=== PATIENT | female | born 1995 | race Caucasian/White ===

== ENCOUNTER 2017-07-18 19:45 | Inpatient (IN) | payer BC ==
[~2017-07-18] VITALS: Ht 160 cm; Wt 57.6 kg
[~2017-07-18 19:45] MED LIST: ACET325T9 PO; IBUP-1027 PO; NAPR-695 PO; NORE1TAB23 PO
[2017-07-18] MEDS ORDERED: IV NORMAL SALINE 1000ML BAG 1,000 ML IV SCH (19:58)
[2017-07-18] MEDS ORDERED: fentaNYL PF VIAL 100 MCG/2 ML VIAL IV PRN (20:00)
[2017-07-18] MEDS ORDERED: ONDANSETRON PF 4 MG/2 ML VIAL. IV ONE (20:00)
--- NOTE | 2017-07-18 20:04 | PHYS DOC ---
Past Medical History Past Medical History: No Pertinent History Additional Past Surgical Histo: wisdom teeth Additional Information: non smoker Drug Use: None Social History Narrative: College student in [place] Adult General Chief Complaint Chief Complaint: ABDOMINAL PAIN HPI HPI Patient is a 22 year old female who presents with abdominal pain. She states this all started 7 weeks ago. She is a college student in [employer]. She states this started with abdominal pain intermittent in her epigastric area radiates to right upper quadrant. She states since this time she's had vomiting "every time I eat something". She states she's hasn't eaten anything but crackers for the last 7 weeks. She actually lost 30 pounds since this started. She did have an outpatient gallbladder ultrasound and a HIDA scan done that were both read as normal. She was seen in the ER [place] on 07/13/17. No CT imaging has been performed yet. Patient is back home here with her parents. No foreign travel. She has a GI appt here in [place] "but not until Dec and she is losing too much weight." She has had a prior EGD "before all this started" and was on a "ulcer medication" but that has long been stopped. Review of Systems Review of Systems Constitutional: Denies fever or chills; POS weight loss 30 lbs. Eyes: Denies change in visual acuity, redness, or eye pain HENT: Denies nasal congestion or sore throat Respiratory: Denies cough or shortness of breath Cardiovascular: No chest pain GI: See HPI; Denies bloody stools or diarrhea : Denies dysuria or hematuria Musculoskeletal: Denies back pain or joint pain Integument: Denies rash or skin lesions Neurologic: Denies headache, focal weakness or sensory changes Family History Family History Crohns in a cousin; mother with hypertension and gallstones Current Medications Current Medications Current Medications Medications (Trade) Dose Ordered Sig/Raphael Start Time Stop Time Status Last Admin Dose Admin Famotidine (Pepcid) 20 mg BID 07/19/17 09:00 Fentanyl Citrate (Fentanyl 2ml Vial) 50 mcg PRN Q15MIN PRN 07/18/17 20:00 07/19/17 19:59 07/18/17 20:41 50 MCG Info (Do NOT chart on this entry -- for MONITORING) 1 each PRN DAILY PRN 07/18/17 21:15 07/20/17 21:14 Iohexol (Omnipaque 300 Mg/ml) 75 ml 1X ONCE 07/18/17 21:15 07/18/17 21:16 DC 07/18/17 21:15 75 ML Ondansetron HCl (Zofran) 4 mg PRN Q8HRS PRN 07/18/17 22:45 07/19/17 22:44 Promethazine HCl 12.5 mg/Dextrose 50.5 ml @ 151.5 mls/ hr PRN Q6HRS PRN 07/18/17 22:45 Sodium Chloride 1,000 ml @ 1,000 mls/hr 1X ONCE 07/18/17 21:15 07/18/17 22:14 DC 07/18/17 21:40 1,000 MLS/HR Allergies Allergies Allergies Coded Allergies Type Severity Reaction Last Updated Verified gabapentin Allergy Severe Nausea and Vomiting 10/18/14 Yes Physical Exam Physical Exam Constitutional: Well developed, well nourished, no acute distress, non-toxic appearance. HENT: Normocephalic, atraumatic, bilateral external ears normal, oropharynx moist, no oral exudates, nose normal. Eyes: PERRLA, EOMI, conjunctiva normal, no discharge. Neck: Normal range of motion, no tenderness, supple, no stridor. Cardiovascular:Heart rate regular rhythm, no murmur Lungs & Thorax: Bilateral breath sounds clear to auscultation Abdomen: Bowel sounds normal, soft, POS tenderness epigastric to RUQ; no rebound or guarding. no masses, no pulsatile masses. Skin: Warm, dry, no erythema, no rash. Back: No tenderness, no CVA tenderness. Extremities: No tenderness, no cyanosis, no clubbing, ROM intact, no edema. Neurologic: Alert and oriented X 3, normal motor function, normal sensory function, no focal deficits noted. Psychologic: Affect normal, judgement normal, mood normal. Current Patient Data Vital Signs Vital Signs Date Time Temp Pulse Resp B/P (MAP) Pulse Ox O2 Delivery O2 Flow Rate FiO2 07/18/17 22:15 90 18 131/88 (102) 99 Room Air 07/18/17 19:58 97.6 97.6 Lab Values Laboratory Tests Test 07/18/17 20:06 07/18/17 20:07 07/18/17 20:17 Urine Collection Type Unknown Urine Color Yellow Urine Clarity Clear Urine pH 6.0 Urine Specific [place] <=1.005 Urine Protein Negative mg/dL (NEG-TRACE) Urine Glucose (UA) Negative mg/dL (NEG) Urine Ketones (Stick) Negative mg/dL (NEG) Urine Blood Negative (NEG) Urine Nitrite Negative (NEG) Urine Bilirubin Negative (NEG) Urine Urobilinogen Dipstick 0.2 mg/dL (0.2 mg/dL) Urine Leukocyte Esterase Negative (NEG) Urine RBC 0 /HPF (0-2) Urine WBC 1-4 /HPF (0-4) Urine Squamous Epithelial Cells Mod /LPF Urine Bacteria Moderate /HPF (0-FEW) Urine Mucus Mod /LPF POC Urine HCG, Qualitative Hcg negative (Negative) White Blood Count 11.4 x10^3/uL (4.0-11.0) H Red Blood Count 4.61 x10^6/uL (3.50-5.40) Hemoglobin 13.5 g/dL (12.0-15.5) Hematocrit 39.3 % (36.0-47.0) Mean Corpuscular Volume 85 fL (79-100) Mean Corpuscular Hemoglobin 29 pg (25-35) Mean Corpuscular Hemoglobin Concent 34 g/dL (31-37) Red Cell Distribution Width 12.4 % (11.5-14.5) Platelet Count 310 x10^3/uL (140-400) Neutrophils (%) (Auto) 55 % (31-73) Lymphocytes (%) (Auto) 37 % (24-48) Monocytes (%) (Auto) 6 % (0-9) Eosinophils (%) (Auto) 1 % (0-3) Basophils (%) (Auto) 1 % (0-3) Neutrophils # (Auto) 6.2 x10^3uL (1.8-7.7) Lymphocytes # (Auto) 4.2 x10^3/uL (1.0-4.8) Monocytes # (Auto) 0.7 x10^3/uL (0.0-1.1) Eosinophils # (Auto) 0.1 x10^3/uL (0.0-0.7) Basophils # (Auto) 0.1 x10^3/uL (0.0-0.2) Sodium Level 140 mmol/L (136-145) Potassium Level 3.5 mmol/L (3.5-5.1) Chloride Level 104 mmol/L (98-107) Carbon Dioxide Level 29 mmol/L (21-32) Anion Gap 7 (6-14) Blood Urea Nitrogen 8 mg/dL (7-20) Creatinine 1.1 mg/dL (0.6-1.0) H Estimated GFR (Cockcroft-Gault) 63.3 Glucose Level 82 mg/dL (70-99) Calcium Level 9.0 mg/dL (8.5-10.1) Total Bilirubin 0.4 mg/dL (0.2-1.0) Direct Bilirubin 0.1 mg/dL (0.0-0.2) Aspartate Amino Transferase (AST) 13 U/L (15-37) L Alanine Aminotransferase (ALT) 21 U/L (14-59) Alkaline Phosphatase 44 U/L (46-116) L Total Protein 7.7 g/dL (6.4-8.2) Albumin 3.9 g/dL (3.4-5.0) Lipase 246 U/L (73-393) Laboratory Tests 07/18/17 20:17 Laboratory Tests 07/18/17 20:17 Radiology/Procedures Radiology/Procedures [facility] [address] [place] [address] IMAGING REPORT Signed PATIENT: JOMAR MORENO ACCOUNT: [id number] : 1995 LOCATION: ER AGE: 22 SEX: F EXAM STATUS: REG ER ORD. PHYSICIAN: FABIAN ELLIS MD REASON: 7 weeks epig/RUQ pain w 30 lb weight loss PROCEDURE: CT ABD PELV W/ IV CONTRST ONLY CT Abdomen and Pelvis With Intravenous Contrast: History: Right upper quadrant pain for 7 weeks. Comparison: None. Technique: After administration of intravenous contrast administration, 75 mL Omnipaque-300, CT of the abdomen and pelvis was performed. Exposure: One or more of the following individualized dose reduction techniques were utilized for this examination: 1. Automated exposure control 2. Adjustment of the mA and/or kV according to patient size 3. Use of iterative reconstruction technique Findings: Evaluation of enteric structures may be limited by lack of oral contrast. Liver, spleen, pancreas, gallbladder, and bilateral adrenal glands unremarkable. Bilateral kidneys enhance symmetrically. No bowel obstruction or inflammation is identified. Appendix is unremarkable. Urinary bladder is unremarkable. Uterus and adnexa have unremarkable CT appearance. No free air or free fluid is seen in the abdomen or pelvis. Impression: 1. No acute abnormality identified in the abdomen or pelvis. Electronically signed by: Mick Ragsdale MD (07/18/2017 9:49 PM) [facility] DICTATED and SIGNED BY: MICK RAGSDALE MD DATE: 07/18/172144 CC: FABIAN ELLIS MD; UNKNOWN PCP NAME ~ Course & Med Decision Making Course & Med Decision Making Evaluated patient upon arrival to the room. IV was established. Will recheck laboratory data as a do not have access to prior records. She denies any THC use ; ethanol or other drug use that can cause similar complaints. At 2044 PM lab data reviewed. Minimal elevation in WBC. UCG negative. No ketones in urine. LFT normal. CT ordered (has NOT been performed prior per patient). Second liter IVF ordered. At 2210 PM: CT results back and are negative. reviewed findings with patient and parents. Parents very uncomfortable with her going home as she has intractable vomiting and pain despite use of zofran and reglan outpatient. They pulled her back from school in [place] "so that we can get this figured out." My differential for abdominal pain includes but is not limited to appendicitis; cholelithiasis or cholecystitis; renal stones; ureterolithiasis; pancreatitis; urinary tract infection; bowel obstruction; irritable bowel, functional (stress ) induced. I have spoken with the patient and/or caregivers. I have explained the patient' s condition, diagnosis and treatment plan based on the information available to me at this time. I have answered the patient's and/or caregiver's questions and addressed any concerns. The patient and/or caregivers have as good an understanding of the patient's diagnosis, condition and treatment plan as can be expected at this point. The patient has been stabilized within the capability of the emergency department. The patient will be transported for further care and management or will be moved to an observation or inpatient service. I have communicated with the staff or medical practitioner taking over this patient's care. I have assessed this patient clinically and believe that their condition requires admission to the hospital. After consulting the admitting physician about this case, they have asked that I admit this patient to their service as an inpatient based on the clinical presentation and my impression. Dragon Disclaimer Dragon Disclaimer This electronic medical record was generated, in whole or in part, using a voice recognition dictation system. Departure Departure Referrals: SANTO PEREZ MD (PCP) FABIAN ELLIS MD Jul 18, 2017 20:04
[2017-07-18 20:15] LABS: BILIRUBIN,URINE NEGATIVE (NEG); GLUCOSE,URINE NEGATIVE (NEG); NITRITE,URINE NEGATIVE (NEG); PROTEIN,URINE NEGATIVE (NEG-TRACE); UROBILINOGEN,URINE 0.2 mg/dL (0.2 mg/dL)
[2017-07-18 20:23] LABS: BACTERIA,URINE MODERATE /HPF (0-FEW); RBC,URINE 0 /HPF (0-2); SQUAMOUS EPITHELIAL CELL,UR MOD /LPF
[2017-07-18 20:27] LABS: BASO # 0.1 x10^3/uL (0.0-0.2); BASO % 1 % (0-3); EOS % 1 % (0-3); HEMATOCRIT 39.3 % (36.0-47.0); HEMOGLOBIN 13.5 g/dL (12.0-15.5); LYMPH # 4.2 x10^3/uL (1.0-4.8); LYMPH % 37 % (24-48); MEAN CORPUSCULAR HEMOGLOBIN 29 pg (25-35); MEAN CORPUSCULAR HGB CONC 34 g/dL (31-37); MEAN CORPUSCULAR VOLUME 85 fL (79-100); MONO % 6 % (0-9); NEUT % 55 % (31-73); PLATELET COUNT 310 x10^3/uL (140-400); RED BLOOD COUNT 4.61 x10^6/uL (3.50-5.40); RED CELL DISTRIBUTION WIDTH 12.4 % (11.5-14.5); WHITE BLOOD COUNT 11.4 x10^3/uL (4.0-11.0)
[2017-07-18 20:38] LABS: CREATININE 1.1 mg/dL (0.6-1.0); GFR 63.3; POTASSIUM 3.5 mmol/L (3.5-5.1)
[2017-07-18 20:45] LABS: ALBUMIN 3.9 g/dL (3.4-5.0); DIRECT BILIRUBIN 0.1 mg/dL (0.0-0.2); TOTAL BILIRUBIN 0.4 mg/dL (0.2-1.0); TOTAL PROTEIN 7.7 g/dL (6.4-8.2)
[2017-07-18] MEDS ORDERED: IOHEXOL 300 MG/ML 75 ML VIAL IV ONE (21:15)
[2017-07-18] MEDS ORDERED: IV NORMAL SALINE 1000ML BAG 1,000 ML IV ONE (21:15)
[2017-07-18] MEDS ORDERED: CONTRAST GIVEN MC PRN (21:15)
--- NOTE | 2017-07-18 21:53 | RAD ---
CT Abdomen and Pelvis With Intravenous Contrast: History: Right upper quadrant pain for 7 weeks. Comparison: None. Technique: After administration of intravenous contrast administration, 75 mL Omnipaque-300, CT of the abdomen and pelvis was performed. Exposure: One or more of the following individualized dose reduction techniques were utilized for this examination: 1. Automated exposure control 2. Adjustment of the mA and/or kV according to patient size 3. Use of iterative reconstruction technique Findings: Evaluation of enteric structures may be limited by lack of oral contrast. Liver, spleen, pancreas, gallbladder, and bilateral adrenal glands unremarkable. Bilateral kidneys enhance symmetrically. No bowel obstruction or inflammation is identified. Appendix is unremarkable. Urinary bladder is unremarkable. Uterus and adnexa have unremarkable CT appearance. No free air or free fluid is seen in the abdomen or pelvis. Impression: 1. No acute abnormality identified in the abdomen or pelvis. Electronically signed by: Mick Benjamin MD (07/18/2017 9:49 PM) [facility]
[2017-07-18] MEDS ORDERED: ONDANSETRON PF 4 MG/2 ML VIAL. IV PRN (22:45)
[2017-07-19] VITALS (7 sets, daily range): BP systolic 110–133; BP diastolic 61–91
[2017-07-19] MEDS: ONDANSETRON PF 4 MG/2 ML VIAL. IV PRN ×3 (01:15→21:07)
[2017-07-19] MEDS: MORPHINE SULFATE 4 MG/ML DISP.SYRIN. IV PRN ×8 (01:18→21:08)
[2017-07-19] MEDS: IV NORMAL SALINE 1000ML BAG 1,000 ML IV SCH ×3 (01:23→23:37)
[2017-07-19] MEDS ORDERED: LEXAPRO20 MG PO (01:46)
[2017-07-19] MEDS: PROMETHAZINE 12.5 MG in IV DEXTROSE 5% 50 ML IV PRN ×2 (06:54→16:30)
[2017-07-19] MEDS ORDERED: LORA10TA68 PO (07:11)
[2017-07-19] MEDS ORDERED: IBUPROFEN 400 MG TABLET. PO PRN (09:00)
[2017-07-19] MEDS ORDERED: ACETAMINOPHEN 325 MG TABLET. PO PRN (09:00)
[2017-07-19] MEDS ORDERED: ACETAMINOPHEN 325 MG TABLET. PO SCH (09:00)
[2017-07-19] MEDS: CETIRIZINE HCL 10 MG TABLET. PO SCH (09:31)
[2017-07-19] MEDS: CITALOPRAM 20 MG TABLET. PO SCH (09:31)
[2017-07-19] MEDS: NAPROXEN 500 MG TABLET PO SCH (09:31)
[2017-07-19] MEDS: FAMOTIDINE 20 MG/2 ML VIAL IVP SCH ×2 (09:33→21:08)
--- NOTE | 2017-07-19 10:17 | PDOC2 ---
GI CONSULT Reason For Consult: Weight loss, intractable n/v, pain HPI: HPI: 22 y/o female from this area, currently on fall break from college in [place], [place]. H/o GI issues; had EGD in 12/2015 in [place] (says normal - performed for cramping and nausea), prior to that had GES (also in [place]) which was abnormal. No treatment recommended. Apparently those symptoms resolved 1.5 years ago. This time has been ill w/ epigastric and RUQ pain w/ vomiting and 30 pound weight loss x 7 weeks. Had US and HIDA in [place] last week; the US tech told her HIDA was abnormal but she later received a call that it was normal. Pain was significantly worse during HIDA. Was also recently seen in ER in [place], given Reglan tabs which she takes before bed - this makes her drowsy. When she takes it during the day, she vomits more. Has allergies (to dust, etc), has also been taking ranitidine BID and prednisone (along w/ loratadine and Benadryl). No reflux/heartburn, dysphagia. Vomits everything she tries to eat or drink except water and crackers. Alternating diarrhea and constipation. No hematemesis, hematochezia, melena. No previous colonoscopy. CT here unrevealing. Labs significant for WBC 11.4, Cr 1.1. Has not been taking any pain meds at home including NSAIDs - Naprosyn and ibuprofen listed on summary (and continued here). Four family members present this morning. PMH: PMH: gastroparesis, anxiety FH: Family History: Other (cousin - Crohn's) Social History: Smoke: No ALCOHOL: none Drugs: None ROS: GEN: Denies fevers, chills, sweats HEENT: Denies blurred vision, sore throat CV: Denies chest pain RESP: Denies shortness of air, cough GI: Per HPI : Denies hematuria, dysuria ENDO: Denies weight changes NEURO: Denies confusion, dizziness MSK: Denies weakness, joint pain/swelling SKIN: Denies jaundice, pruritus Vitals: Vitals: Vital Signs Date Time Temp Pulse Resp B/P (MAP) Pulse Ox O2 Delivery O2 Flow Rate FiO2 07/19/17 09:31 Room Air 07/19/17 07:00 98.4 73 18 125/80 (95) 96 98.4 Labs: Labs: Laboratory Tests Test 07/18/17 20:06 07/18/17 20:07 07/18/17 20:17 Urine Collection Type Unknown Urine Color Yellow Urine Clarity Clear Urine pH 6.0 Urine Specific [place] <=1.005 Urine Protein Negative mg/dL (NEG-TRACE) Urine Glucose (UA) Negative mg/dL (NEG) Urine Ketones (Stick) Negative mg/dL (NEG) Urine Blood Negative (NEG) Urine Nitrite Negative (NEG) Urine Bilirubin Negative (NEG) Urine Urobilinogen Dipstick 0.2 mg/dL (0.2 mg/dL) Urine Leukocyte Esterase Negative (NEG) Urine RBC 0 /HPF (0-2) Urine WBC 1-4 /HPF (0-4) Urine Squamous Epithelial Cells Mod /LPF Urine Bacteria Moderate /HPF (0-FEW) Urine Mucus Mod /LPF Bedside Urine HCG, Qualitative Hcg negative (Negative) White Blood Count 11.4 x10^3/uL (4.0-11.0) Red Blood Count 4.61 x10^6/uL (3.50-5.40) Hemoglobin 13.5 g/dL (12.0-15.5) Hematocrit 39.3 % (36.0-47.0) Mean Corpuscular Volume 85 fL (79-100) Mean Corpuscular Hemoglobin 29 pg (25-35) Mean Corpuscular Hemoglobin Concent 34 g/dL (31-37) Red Cell Distribution Width 12.4 % (11.5-14.5) Platelet Count 310 x10^3/uL (140-400) Neutrophils (%) (Auto) 55 % (31-73) Lymphocytes (%) (Auto) 37 % (24-48) Monocytes (%) (Auto) 6 % (0-9) Eosinophils (%) (Auto) 1 % (0-3) Basophils (%) (Auto) 1 % (0-3) Neutrophils # (Auto) 6.2 x10^3uL (1.8-7.7) Lymphocytes # (Auto) 4.2 x10^3/uL (1.0-4.8) Monocytes # (Auto) 0.7 x10^3/uL (0.0-1.1) Eosinophils # (Auto) 0.1 x10^3/uL (0.0-0.7) Basophils # (Auto) 0.1 x10^3/uL (0.0-0.2) Sodium Level 140 mmol/L (136-145) Potassium Level 3.5 mmol/L (3.5-5.1) Chloride Level 104 mmol/L (98-107) Carbon Dioxide Level 29 mmol/L (21-32) Anion Gap 7 (6-14) Blood Urea Nitrogen 8 mg/dL (7-20) Creatinine 1.1 mg/dL (0.6-1.0) Estimated GFR (Cockcroft-Gault) 63.3 Glucose Level 82 mg/dL (70-99) Calcium Level 9.0 mg/dL (8.5-10.1) Total Bilirubin 0.4 mg/dL (0.2-1.0) Direct Bilirubin 0.1 mg/dL (0.0-0.2) Aspartate Amino Transf (AST/SGOT) 13 U/L (15-37) Alanine Aminotransferase (ALT/SGPT) 21 U/L (14-59) Alkaline Phosphatase 44 U/L (46-116) Total Protein 7.7 g/dL (6.4-8.2) Albumin 3.9 g/dL (3.4-5.0) Lipase 246 U/L (73-393) Allergies: Coded Allergies: gabapentin (Verified Allergy, Severe, Nausea and Vomiting, 10/18/14) Medications: Current Medications Medications (Trade) Dose Ordered Sig/Raphael Route PRN Reason Start Time Stop Time Status Last Admin Dose Admin Fentanyl Citrate (Fentanyl 2ml Vial) 50 mcg PRN Q15MIN PRN IV PAIN GREATER THAN 12/1007/18/17 20:00 07/19/17 08:50 DC 07/18/17 20:41 Sodium Chloride 1,000 ml @ 1,000 mls/hr Q1H IV 07/18/17 19:58 07/18/17 20:57 DC 07/18/17 20:39 Ondansetron HCl (Zofran) 4 mg 1X ONCE IV 07/18/17 20:00 07/18/17 20:04 DC 07/18/17 20:39 Sodium Chloride 1,000 ml @ 1,000 mls/hr 1X ONCE IV 07/18/17 21:15 07/18/17 22:14 DC 07/18/17 21:40 Iohexol (Omnipaque 300 Mg/ml) 75 ml 1X ONCE IV 07/18/17 21:15 07/18/17 21:16 DC 07/18/17 21:15 Promethazine HCl 12.5 mg/Dextrose 50.5 ml @ 151.5 mls/ hr PRN Q6HRS PRN IV NAUSEA/VOMITING 07/18/17 22:45 07/19/17 06:54 Famotidine (Pepcid) 20 mg BID IVP 07/19/17 09:00 07/19/17 09:33 Morphine Sulfate 4 mg PRN Q2HR PRN IV SEVERE PAIN 07/19/17 01:00 07/19/17 09:31 Ondansetron HCl (Zofran) 8 mg PRN Q8HRS PRN IV NAUSEA/VOMITING 07/19/17 01:00 07/19/17 09:30 Sodium Chloride 1,000 ml @ 100 mls/hr Q10H IV 07/19/17 01:00 07/19/17 01:23 Citalopram Hydrobromide (CeleXA) 40 mg DAILY PO 07/19/17 09:00 07/19/17 09:31 Naproxen (Naprosyn) 500 mg DAILY PO 07/19/17 09:00 07/19/17 09:31 Cetirizine HCl (ZyrTEC) 10 mg DAILY PO 07/19/17 09:00 07/19/17 09:31 Imaging: Imaging: CT A/P w/ IV contrast Findings: Evaluation of enteric structures may be limited by lack of oral contrast. Liver, spleen, pancreas, gallbladder, and bilateral adrenal glands unremarkable. Bilateral kidneys enhance symmetrically. No bowel obstruction or inflammation is identified. Appendix is unremarkable. Urinary bladder is unremarkable. Uterus and adnexa have unremarkable CT appearance. No free air or free fluid is seen in the abdomen or pelvis. Impression: 1. No acute abnormality identified in the abdomen or pelvis. PE: GEN: NAD HEENT: Atraumatic, PERRL LUNGS: CTAB HEART: RRR ABD: BS+, soft, tender to gentle placement of stethoscope epigastrium to RUQ to RLQ EXTREMITY: No edema SKIN: No rashes, no jaundice NEURO/PSYCH: A & O 3, drowsy A/P: A/P: Epigastric and RUQ pain, n/v, weight loss -x 7 weeks -previous EGD in 12/2015, reportedly normal -had US and HIDA last week in [place], was called w/ normal results -CT unrevealing this admission H/o gastroparesis -reports abnormal GES ~2 years ago in [place] -was recently given Reglan tabs in ER in [place], taking QHS w/ unclear efficacy ; has never tried erythromycin Alternating bowel habits -- Await records of previous studies. Continue H2 ermelinda. Add erythromycin. ?need to continue NSAIDs Check aric BACK. HALLE CAMEJO Jul 19, 2017 10:17
--- NOTE | 2017-07-19 12:42 | PDOC1 ---
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 She is afraid toe at bec she does not want to vomit All tests and labs unrevealing, GI has started emycin - hx intolerance to reglan, ordered NAZANIN and cortsiol in AM We are also getting records of that HIDA scan etc done outside Dw mother at bedside She is more than willing to have any type of sx - i.e jai if HIDA was abN She denies family hx of GI issues She has alternating bowel habits I did introduce IBS concept SHe is mostly tender on Right side rib cage area - from vomiting? NO TSH yet Past Medical History Cardiovascular: No pertinent hx Pulmonary: No pertinent hx GI: Constipation, Other (diarrhea) Heme/Onc: No pertinent hx Psych: No pertinent hx Rheumatologic: No pertinent hx Renal/: No pertinent hx Endocrine: No pertinent hx Dermatology: No pertinent hx Past Surgical History Past Surgical History: No pertinent history Family History Family History: No Significant Social History Smoke: No ALCOHOL: none Drugs: None Current Medications Current Medications Current Medications Fentanyl Citrate (Fentanyl 2ml Vial) 50 mcg PRN Q15MIN PRN IV PAIN GREATER THAN 3/10 Last administered on 07/18/17 20:41; Start 07/18/17 at 20:00; Stop 07/19/17 at 08:50; Status DC Sodium Chloride 1,000 ml @ 1,000 mls/hr Q1H IV Last administered on 20:39; Start 07/18/17 at 19:58; Stop 07/18/17 at 20:57; Status DC Ondansetron HCl (Zofran) 4 mg 1X ONCE IV Last administered on 07/18/17 20:39 ; Start 07/18/17 at 20:00; Stop 07/18/17 at 20:04; Status DC Sodium Chloride 1,000 ml @ 1,000 mls/hr 1X ONCE IV Last administered on 07/18 21:40; Start 07/18/17 at 21:15; Stop 07/18/17 at 22:14; Status DC Iohexol (Omnipaque 300 Mg/ml) 75 ml 1X ONCE IV Last administered on 21:15; Start 07/18/17 at 21:15; Stop 07/18/17 at 21:16; Status DC Info (Do NOT chart on this entry -- for MONITORING) 1 each PRN DAILY PRN MC SEE COMMENTS; Start 07/18/17 at 21:15; Stop 07/20/17 at 21:14 Ondansetron HCl (Zofran) 4 mg PRN Q8HRS PRN IV NAUSEA/VOMITING; Start at 22:45; Stop 07/19/17 at 00:56; Status DC Promethazine HCl 12.5 mg/Dextrose 50.5 ml @ 151.5 mls/ hr PRN Q6HRS PRN IV NAUSEA/VOMITING Last administered on 07/19/17 06:54; Start 07/18/17 at 22:45 Famotidine (Pepcid) 20 mg BID IVP Last administered on 07/19/17 09:33; Start 07/19/17 at 09:00 Morphine Sulfate 4 mg PRN Q2HR PRN IV SEVERE PAIN Last administered on 12:14; Start 07/19/17 at 01:00 Ondansetron HCl (Zofran) 8 mg PRN Q8HRS PRN IV NAUSEA/VOMITING Last administered on 07/19/17 09:30; Start 07/19/17 at 01:00 Sodium Chloride 1,000 ml @ 100 mls/hr Q10H IV Last administered on 07/19/17 12:13; Start 07/19/17 at 01:00 Citalopram Hydrobromide (CeleXA) 40 mg DAILY PO Last administered on 09:31; Start 07/19/17 at 09:00 Acetaminophen (Tylenol) 500 mg QID PO ; Start 07/19/17 at 09:00; Stop at 09:00; Status DC Ibuprofen (Motrin) 400 mg PRN Q6HRS PRN PO INFLAMMATION; Start 07/19/17 at 09: 00 Naproxen (Naprosyn) 500 mg DAILY PO Last administered on 07/19/17 09:31; Start 07/19/17 at 09:00 Cetirizine HCl (ZyrTEC) 10 mg DAILY PO Last administered on 07/19/17 09:31; Start 07/19/17 at 09:00 Acetaminophen (Tylenol) 500 mg PRN QID PRN PO MILD PAIN; Start 07/19/17 at 09: 00 Erythromycin (E-Mycin) 500 mg TID PO ; Start 07/19/17 at 14:00; Status UNV Erythromycin Lactobionate 250 mg/Sodium Chloride 100 ml @ 100 mls/hr Q8HRS IV ; Start 07/19/17 at 14:00 Active Scripts Active Reported Claritin (Loratadine) 10 Mg Tablet 10 Mg PO Lexapro (Escitalopram Oxalate) 20 Mg Tablet 20 Mg PO DAILY Nortrel (Norethindrone-Ethinyl Estrad) 1 Each Tablet 1 Each PO Tylenol (Acetaminophen) 325 Mg Tablet 1-2 Tab PO QID Naproxen 375 Mg Tablet 2 Tab PO DAILY Ibuprofen 400 Mg Tablet 1 Tab PO PRN Q6HRS Allergies Allergies: Coded Allergies: gabapentin (Verified Allergy, Severe, Nausea and Vomiting, 10/18/14) ROS Review of System as per HPI< nausea, emesis, abd pain, weight loss- no cp, soa, or fevers or psych issues Physical Exam General: Oriented X3, Cooperative, No acute distress HEENT: PERRLA Lungs: Clear to auscultation, Normal air movement Heart: S1S2, RRR, no thrills, no rubs, no gallops, no murmurs Cardiovascular: S1, S2 Abdomen: Soft, Other (tenderness Right side) Rectal Exam: not examined Extremities: No clubbing, No cyanosis, No edema, Normal pulses, No tenderness/ swelling Skin: No rashes, No breakdown, No significant lesion Neuro: Normal gait, Normal speech, Strength at 5/5 X4 ext, Normal tone, Sensation intact, Cranial nerves 3-12 NL, Reflexes 2+ Psych/Mental Status: Mental status NL, Mood NL Vitals Vitals Vital Signs Date Time Temp Pulse Resp B/P (MAP) Pulse Ox O2 Delivery O2 Flow Rate FiO2 07/19/17 12:14 Room Air 07/19/17 07:00 98.4 73 18 125/80 (95) 96 98.4 Labs Labs Laboratory Tests Test 07/18/17 20:06 07/18/17 20:07 07/18/17 20:17 Urine Collection Type Unknown Urine Color Yellow Urine Clarity Clear Urine pH 6.0 Urine Specific [place] <=1.005 Urine Protein Negative mg/dL (NEG-TRACE) Urine Glucose (UA) Negative mg/dL (NEG) Urine Ketones (Stick) Negative mg/dL (NEG) Urine Blood Negative (NEG) Urine Nitrite Negative (NEG) Urine Bilirubin Negative (NEG) Urine Urobilinogen Dipstick 0.2 mg/dL (0.2 mg/dL) Urine Leukocyte Esterase Negative (NEG) Urine RBC 0 /HPF (0-2) Urine WBC 1-4 /HPF (0-4) Urine Squamous Epithelial Cells Mod /LPF Urine Bacteria Moderate /HPF (0-FEW) Urine Mucus Mod /LPF Bedside Urine HCG, Qualitative Hcg negative (Negative) White Blood Count 11.4 x10^3/uL (4.0-11.0) Red Blood Count 4.61 x10^6/uL (3.50-5.40) Hemoglobin 13.5 g/dL (12.0-15.5) Hematocrit 39.3 % (36.0-47.0) Mean Corpuscular Volume 85 fL (79-100) Mean Corpuscular Hemoglobin 29 pg (25-35) Mean Corpuscular Hemoglobin Concent 34 g/dL (31-37) Red Cell Distribution Width 12.4 % (11.5-14.5) Platelet Count 310 x10^3/uL (140-400) Neutrophils (%) (Auto) 55 % (31-73) Lymphocytes (%) (Auto) 37 % (24-48) Monocytes (%) (Auto) 6 % (0-9) Eosinophils (%) (Auto) 1 % (0-3) Basophils (%) (Auto) 1 % (0-3) Neutrophils # (Auto) 6.2 x10^3uL (1.8-7.7) Lymphocytes # (Auto) 4.2 x10^3/uL (1.0-4.8) Monocytes # (Auto) 0.7 x10^3/uL (0.0-1.1) Eosinophils # (Auto) 0.1 x10^3/uL (0.0-0.7) Basophils # (Auto) 0.1 x10^3/uL (0.0-0.2) Sodium Level 140 mmol/L (136-145) Potassium Level 3.5 mmol/L (3.5-5.1) Chloride Level 104 mmol/L (98-107) Carbon Dioxide Level 29 mmol/L (21-32) Anion Gap 7 (6-14) Blood Urea Nitrogen 8 mg/dL (7-20) Creatinine 1.1 mg/dL (0.6-1.0) Estimated GFR (Cockcroft-Gault) 63.3 Glucose Level 82 mg/dL (70-99) Calcium Level 9.0 mg/dL (8.5-10.1) Total Bilirubin 0.4 mg/dL (0.2-1.0) Direct Bilirubin 0.1 mg/dL (0.0-0.2) Aspartate Amino Transf (AST/SGOT) 13 U/L (15-37) Alanine Aminotransferase (ALT/SGPT) 21 U/L (14-59) Alkaline Phosphatase 44 U/L (46-116) Total Protein 7.7 g/dL (6.4-8.2) Albumin 3.9 g/dL (3.4-5.0) Lipase 246 U/L (73-393) Laboratory Tests Test 07/18/17 20:06 07/18/17 20:07 07/18/17 20:17 Urine Collection Type Unknown Urine Color Yellow Urine Clarity Clear Urine pH 6.0 Urine Specific [place] <=1.005 Urine Protein Negative mg/dL (NEG-TRACE) Urine Glucose (UA) Negative mg/dL (NEG) Urine Ketones (Stick) Negative mg/dL (NEG) Urine Blood Negative (NEG) Urine Nitrite Negative (NEG) Urine Bilirubin Negative (NEG) Urine Urobilinogen Dipstick 0.2 mg/dL (0.2 mg/dL) Urine Leukocyte Esterase Negative (NEG) Urine RBC 0 /HPF (0-2) Urine WBC 1-4 /HPF (0-4) Urine Squamous Epithelial Cells Mod /LPF Urine Bacteria Moderate /HPF (0-FEW) Urine Mucus Mod /LPF Bedside Urine HCG, Qualitative Hcg negative (Negative) White Blood Count 11.4 x10^3/uL (4.0-11.0) Red Blood Count 4.61 x10^6/uL (3.50-5.40) Hemoglobin 13.5 g/dL (12.0-15.5) Hematocrit 39.3 % (36.0-47.0) Mean Corpuscular Volume 85 fL (79-100) Mean Corpuscular Hemoglobin 29 pg (25-35) Mean Corpuscular Hemoglobin Concent 34 g/dL (31-37) Red Cell Distribution Width 12.4 % (11.5-14.5) Platelet Count 310 x10^3/uL (140-400) Neutrophils (%) (Auto) 55 % (31-73) Lymphocytes (%) (Auto) 37 % (24-48) Monocytes (%) (Auto) 6 % (0-9) Eosinophils (%) (Auto) 1 % (0-3) Basophils (%) (Auto) 1 % (0-3) Neutrophils # (Auto) 6.2 x10^3uL (1.8-7.7) Lymphocytes # (Auto) 4.2 x10^3/uL (1.0-4.8) Monocytes # (Auto) 0.7 x10^3/uL (0.0-1.1) Eosinophils # (Auto) 0.1 x10^3/uL (0.0-0.7) Basophils # (Auto) 0.1 x10^3/uL (0.0-0.2) Sodium Level 140 mmol/L (136-145) Potassium Level 3.5 mmol/L (3.5-5.1) Chloride Level 104 mmol/L (98-107) Carbon Dioxide Level 29 mmol/L (21-32) Anion Gap 7 (6-14) Blood Urea Nitrogen 8 mg/dL (7-20) Creatinine 1.1 mg/dL (0.6-1.0) Estimated GFR (Cockcroft-Gault) 63.3 Glucose Level 82 mg/dL (70-99) Calcium Level 9.0 mg/dL (8.5-10.1) Total Bilirubin 0.4 mg/dL (0.2-1.0) Direct Bilirubin 0.1 mg/dL (0.0-0.2) Aspartate Amino Transf (AST/SGOT) 13 U/L (15-37) Alanine Aminotransferase (ALT/SGPT) 21 U/L (14-59) Alkaline Phosphatase 44 U/L (46-116) Total Protein 7.7 g/dL (6.4-8.2) Albumin 3.9 g/dL (3.4-5.0) Lipase 246 U/L (73-393) VTE Prophylaxis Ordered VTE Prophylaxis Devices: Yes VTE Pharmacological Prophylaxi: Yes Assessment/Plan Assessment/Plan 1. Abd pain, RT side mostly with unrevealing tests - she did mention in her HIDA she was told her GB was not functioning?? Get records from where this was done 2. PErsistent nausea, emesis with 30 lb weight loss PLAN: Agree with above tests, NAZANIN, trial of emycin Add tsh Check HIDA if cant get the hIDA done as OP Dw mother and pt and RN tran COuld be IBS if all tests unrevealing JIL FRIED MD Jul 19, 2017 12:42
[2017-07-19] MEDS ORDERED: ERYTHROMYCIN BASE 250 MG TABLET PO SCH (14:00)
[2017-07-19] MEDS: ERYTHROMYCIN LACT 250 MG in IV NORMAL SALINE 100ML 100 ML IV SCH ×2 (14:17→22:49)
[2017-07-20] MEDS: fentaNYL PF VIAL 100 MCG/2 ML VIAL IV PRN ×4 (01:46→12:09)
[2017-07-20 03:00] VITALS: BP 126/77
[2017-07-20] MEDS: ERYTHROMYCIN LACT 250 MG in IV NORMAL SALINE 100ML 100 ML IV SCH ×3 (06:23→22:01)
[2017-07-20] MEDS: ONDANSETRON PF 4 MG/2 ML VIAL. IV PRN ×2 (06:24→19:54)
[2017-07-20 07:15] VITALS: BP 106/71
[2017-07-20] MEDS: NAPROXEN 500 MG TABLET PO SCH (08:02)
[2017-07-20] MEDS: CETIRIZINE HCL 10 MG TABLET. PO SCH (08:02)
[2017-07-20] MEDS: CITALOPRAM 20 MG TABLET. PO SCH (08:03)
[2017-07-20] MEDS: IV NORMAL SALINE 1000ML BAG 1,000 ML IV SCH ×2 (08:58→17:00)
[2017-07-20] MEDS: FAMOTIDINE 20 MG/2 ML VIAL IVP SCH ×2 (08:58→22:01)
[2017-07-20 10:48] VITALS: BP 130/81
--- NOTE | 2017-07-20 11:24 | PDOC ---
PROGRESS NOTES Chief Complaint Chief Complaint 1. Abd pain, RT side mostly with unrevealing tests - (CT scan C scope, HIDa scan done outside) 2. PErsistent nausea, emesis with 30 lb weight loss History of Present Illness History of Present Illness HIDA scan from outside I have reviewed - NORMAL EF of GB, no GB Stones PT busy playing with her phone FAmily at bedside PLAn: Rpt HIDA ordered by GI - to be done today 11 AM NOt interestd in food - on lqiuid diet (she is afraid she will vomit) Vitals Vitals Vital Signs Date Time Temp Pulse Resp B/P (MAP) Pulse Ox O2 Delivery O2 Flow Rate FiO2 07/20/17 10:48 98.2 75 18 130/81 (97) 98 Room Air 98.2 Physical Exam General: Oriented X3, Cooperative, No acute distress Abdomen: Soft, Other (tenderness Right side) Extremities: No clubbing, No cyanosis, No edema, Normal pulses, No tenderness/ swelling Skin: No rashes, No breakdown, No significant lesion Labs LABS Laboratory Tests Test 07/20/17 04:15 Thyroid Stimulating Hormone (TSH) 1.351 uIU/mL (0.358-3.74) Review of Systems Review of Systems refused to participate with my complete ROS) Comment Review of Relevant I have reviewed the following items rut (where applicable) has been applied. Labs Laboratory Tests Test 07/18/17 20:06 07/18/17 20:07 07/18/17 20:17 07/20/17 04:15 Urine Collection Type Unknown Urine Color Yellow Urine Clarity Clear Urine pH 6.0 Urine Specific [place] <=1.005 Urine Protein Negative mg/dL (NEG-TRACE) Urine Glucose (UA) Negative mg/dL (NEG) Urine Ketones (Stick) Negative mg/dL (NEG) Urine Blood Negative (NEG) Urine Nitrite Negative (NEG) Urine Bilirubin Negative (NEG) Urine Urobilinogen Dipstick 0.2 mg/dL (0.2 mg/dL) Urine Leukocyte Esterase Negative (NEG) Urine RBC 0 /HPF (0-2) Urine WBC 1-4 /HPF (0-4) Urine Squamous Epithelial Cells Mod /LPF Urine Bacteria Moderate /HPF (0-FEW) Urine Mucus Mod /LPF Bedside Urine HCG, Qualitative Hcg negative (Negative) White Blood Count 11.4 x10^3/uL (4.0-11.0) Red Blood Count 4.61 x10^6/uL (3.50-5.40) Hemoglobin 13.5 g/dL (12.0-15.5) Hematocrit 39.3 % (36.0-47.0) Mean Corpuscular Volume 85 fL (79-100) Mean Corpuscular Hemoglobin 29 pg (25-35) Mean Corpuscular Hemoglobin Concent 34 g/dL (31-37) Red Cell Distribution Width 12.4 % (11.5-14.5) Platelet Count 310 x10^3/uL (140-400) Neutrophils (%) (Auto) 55 % (31-73) Lymphocytes (%) (Auto) 37 % (24-48) Monocytes (%) (Auto) 6 % (0-9) Eosinophils (%) (Auto) 1 % (0-3) Basophils (%) (Auto) 1 % (0-3) Neutrophils # (Auto) 6.2 x10^3uL (1.8-7.7) Lymphocytes # (Auto) 4.2 x10^3/uL (1.0-4.8) Monocytes # (Auto) 0.7 x10^3/uL (0.0-1.1) Eosinophils # (Auto) 0.1 x10^3/uL (0.0-0.7) Basophils # (Auto) 0.1 x10^3/uL (0.0-0.2) Sodium Level 140 mmol/L (136-145) Potassium Level 3.5 mmol/L (3.5-5.1) Chloride Level 104 mmol/L (98-107) Carbon Dioxide Level 29 mmol/L (21-32) Anion Gap 7 (6-14) Blood Urea Nitrogen 8 mg/dL (7-20) Creatinine 1.1 mg/dL (0.6-1.0) Estimated GFR (Cockcroft-Gault) 63.3 Glucose Level 82 mg/dL (70-99) Calcium Level 9.0 mg/dL (8.5-10.1) Total Bilirubin 0.4 mg/dL (0.2-1.0) Direct Bilirubin 0.1 mg/dL (0.0-0.2) Aspartate Amino Transf (AST/SGOT) 13 U/L (15-37) Alanine Aminotransferase (ALT/SGPT) 21 U/L (14-59) Alkaline Phosphatase 44 U/L (46-116) Total Protein 7.7 g/dL (6.4-8.2) Albumin 3.9 g/dL (3.4-5.0) Lipase 246 U/L (73-393) Thyroid Stimulating Hormone (TSH) 1.351 uIU/mL (0.358-3.74) Laboratory Tests Test 07/20/17 04:15 Thyroid Stimulating Hormone (TSH) 1.351 uIU/mL (0.358-3.74) Microbiology 07/18/17 Urine Culture - Preliminary, Resulted 07/18/17 Urine Culture Result 1 (FROY) - Preliminary, Resulted Medications Current Medications Fentanyl Citrate (Fentanyl 2ml Vial) 50 mcg PRN Q15MIN PRN IV PAIN GREATER THAN 3/10 Last administered on 07/18/17 20:41; Start 07/18/17 at 20:00; Stop 07/19/17 at 08:50; Status DC Sodium Chloride 1,000 ml @ 1,000 mls/hr Q1H IV Last administered on 20:39; Start 07/18/17 at 19:58; Stop 07/18/17 at 20:57; Status DC Ondansetron HCl (Zofran) 4 mg 1X ONCE IV Last administered on 07/18/17 20:39 ; Start 07/18/17 at 20:00; Stop 07/18/17 at 20:04; Status DC Sodium Chloride 1,000 ml @ 1,000 mls/hr 1X ONCE IV Last administered on 07/18 21:40; Start 07/18/17 at 21:15; Stop 07/18/17 at 22:14; Status DC Iohexol (Omnipaque 300 Mg/ml) 75 ml 1X ONCE IV Last administered on 21:15; Start 07/18/17 at 21:15; Stop 07/18/17 at 21:16; Status DC Info (Do NOT chart on this entry -- for MONITORING) 1 each PRN DAILY PRN MC SEE COMMENTS; Start 07/18/17 at 21:15; Stop 07/20/17 at 21:14 Ondansetron HCl (Zofran) 4 mg PRN Q8HRS PRN IV NAUSEA/VOMITING; Start at 22:45; Stop 07/19/17 at 00:56; Status DC Promethazine HCl 12.5 mg/Dextrose 50.5 ml @ 151.5 mls/ hr PRN Q6HRS PRN IV NAUSEA/VOMITING Last administered on 07/19/17 16:30; Start 07/18/17 at 22:45 Famotidine (Pepcid) 20 mg BID IVP Last administered on 07/20/17 08:58; Start 07/19/17 at 09:00 Morphine Sulfate 4 mg PRN Q2HR PRN IV SEVERE PAIN Last administered on 21:08; Start 07/19/17 at 01:00 Ondansetron HCl (Zofran) 8 mg PRN Q8HRS PRN IV NAUSEA/VOMITING Last administered on 07/20/17 06:24; Start 07/19/17 at 01:00 Sodium Chloride 1,000 ml @ 100 mls/hr Q10H IV Last administered on 07/20/17 08:58; Start 07/19/17 at 01:00 Citalopram Hydrobromide (CeleXA) 40 mg DAILY PO Last administered on 09:31; Start 07/19/17 at 09:00 Acetaminophen (Tylenol) 500 mg QID PO ; Start 07/19/17 at 09:00; Stop at 09:00; Status DC Ibuprofen (Motrin) 400 mg PRN Q6HRS PRN PO INFLAMMATION; Start 07/19/17 at 09: 00 Naproxen (Naprosyn) 500 mg DAILY PO Last administered on 07/19/17 09:31; Start 07/19/17 at 09:00 Cetirizine HCl (ZyrTEC) 10 mg DAILY PO Last administered on 07/19/17 09:31; Start 07/19/17 at 09:00 Acetaminophen (Tylenol) 500 mg PRN QID PRN PO MILD PAIN; Start 07/19/17 at 09: 00 Erythromycin (E-Mycin) 500 mg TID PO ; Start 07/19/17 at 14:00; Status UNV Erythromycin Lactobionate 250 mg/Sodium Chloride 100 ml @ 100 mls/hr Q8HRS IV Last administered on 07/20/17 06:23; Start 07/19/17 at 14:00 Fentanyl Citrate (Fentanyl 2ml Vial) 50 mcg PRN Q2HR PRN IV SEVERE PAIN Last administered on 07/20/17 08:58; Start 07/20/17 at 00:15 Active Scripts Active Reported Claritin (Loratadine) 10 Mg Tablet 10 Mg PO Lexapro (Escitalopram Oxalate) 20 Mg Tablet 20 Mg PO DAILY Nortrel (Norethindrone-Ethinyl Estrad) 1 Each Tablet 1 Each PO Tylenol (Acetaminophen) 325 Mg Tablet 1-2 Tab PO QID Naproxen 375 Mg Tablet 2 Tab PO DAILY Ibuprofen 400 Mg Tablet 1 Tab PO PRN Q6HRS Vitals/I & O Vital Sign - Last 24 Hours 07/19/17 07/19/17 07/19/17 07/19/17 12:14 14:22 15:00 16:31 Temp 98.3 98.3 Pulse 76 Resp 18 B/P (MAP) 132/91 (105) Pulse Ox 95 O2 Delivery Room Air Room Air Room Air Room Air 07/19/17 07/19/17 07/19/17 07/19/17 19:00 20:30 21:08 21:40 Temp 98.4 98.4 Pulse 73 Resp 18 16 B/P (MAP) 133/85 (101) Pulse Ox 96 96 96 O2 Delivery Room Air Room Air Room Air Room Air 07/19/17 07/20/17 07/20/17 07/20/17 23:00 01:46 03:00 06:23 Temp 98.3 97.9 98.3 97.9 Pulse 85 71 Resp 18 18 17 B/P (MAP) 126/83 (97) 126/77 (93) Pulse Ox 95 95 95 95 O2 Delivery Room Air Room Air Room Air Room Air 07/20/17 07/20/17 07/20/17 07/20/17 07:15 08:58 10:45 10:48 Temp 97.7 98.2 97.7 98.2 Pulse 92 75 Resp 18 18 B/P (MAP) 106/71 (83) 130/81 (97) Pulse Ox 97 97 98 O2 Delivery Room Air Room Air Room Air Room Air JIL FRIED MD Jul 20, 2017 11:24
[2017-07-20] MEDS ORDERED: SINCALIDE 1.2 MCG in IV NORMAL SALINE 50ML 30 ML IV ONE (12:30)
--- NOTE | 2017-07-20 12:34 | PDOC ---
Subjective: Subjective: Out for PIPIDA. Dad says no appetite, still sore. Objective: Vital Signs: Vital Signs Date Time Temp Pulse Resp B/P (MAP) Pulse Ox O2 Delivery O2 Flow Rate FiO2 07/20/17 12:09 Room Air 07/20/17 10:48 98.2 75 18 130/81 (97) 98 98.2 Labs: Laboratory Tests Test 07/20/17 04:15 Thyroid Stimulating Hormone (TSH) 1.351 uIU/mL PE: no exam A/P: Epigastric and RUQ pain, n/v, weight loss -GES 02/2016: T1/2 131 min -EGD 12/2016: normal esophagus, erosive gastritis, normal duodenum -HIDA last week w/ "fatty meal": w/o cholecystitis, GB EF 64% -CT unrevealing this admission -TSH normal, NAZANIN and Cortisol pending -on IV erythromycin and Pepcid -- Await PIPIDA. HALLE CAMEJO Jul 20, 2017 12:34
--- NOTE | 2017-07-20 13:15 | RAD ---
EXAM: Nuclear hepatobiliary scan with ejection fraction. HISTORY: Epigastric pain, nausea and vomiting. TECHNIQUE: Serial static images are obtained of the liver and biliary system in a frontal projection following IV administration of 5.5 mCi of technetium-99m Choletec. After filling of the gallbladder, 1.2 mcg of sincalide were infused over 30 minutes and dynamic imaging continued over this period. The gallbladder ejection fraction was calculated. FINDINGS: There is prompt hepatic clearance of tracer from the blood pool. There is homogeneous distribution throughout the liver. There is normal filling of the gallbladder and normal emptying into the biliary system and small bowel. The gallbladder ejection fraction is 95.6% (normal >35%). IMPRESSION: 1. Normal gallbladder ejection fraction.
[2017-07-20] MEDS: MORPHINE SULFATE 4 MG/ML DISP.SYRIN. IV PRN ×4 (13:42→23:13)
[2017-07-20] MEDS: PROMETHAZINE 12.5 MG in IV DEXTROSE 5% 50 ML IV PRN (13:56)
[2017-07-20 15:00] VITALS: BP 103/73
[2017-07-20 19:25] VITALS: BP 121/75
[2017-07-20 23:17] VITALS: BP 109/70
[2017-07-21 03:31] VITALS: BP 113/74
[2017-07-21] MEDS: IV NORMAL SALINE 1000ML BAG 1,000 ML IV SCH ×3 (03:49→17:07)
[2017-07-21] MEDS: ONDANSETRON PF 4 MG/2 ML VIAL. IV PRN ×2 (03:52→12:26)
[2017-07-21] MEDS: MORPHINE SULFATE 4 MG/ML DISP.SYRIN. IV PRN ×2 (03:53→08:54)
[2017-07-21] MEDS: ERYTHROMYCIN LACT 250 MG in IV NORMAL SALINE 100ML 100 ML IV SCH ×3 (06:46→21:25)
[2017-07-21 07:00] VITALS: BP 108/70
--- NOTE | 2017-07-21 08:34 | PDOC2 ---
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 Reports can only keep down water and saltine crackers. Reports a 30 lbs weight loss due to inability to eat. She has had several outside imaging. CT here normal. HIDA with EF 96% and + reproduction of symptoms with Kinevac Past Medical History Cardiovascular: No pertinent hx Pulmonary: No pertinent hx GI: Constipation, Other (diarrhea) Heme/Onc: No pertinent hx Psych: Anxiety Rheumatologic: No pertinent hx Renal/: No pertinent hx Endocrine: No pertinent hx Dermatology: No pertinent hx Past Surgical History Past Surgical History: No pertinent history Family History Family History: No Significant Social History No ALCOHOL: none Drugs: None Lives: Alone Current Medications Current Medications Current Medications Fentanyl Citrate (Fentanyl 2ml Vial) 50 mcg PRN Q15MIN PRN IV PAIN GREATER THAN 3/10 Last administered on 07/18/17 20:41; Start 07/18/17 at 20:00; Stop 07/19/17 at 08:50; Status DC Sodium Chloride 1,000 ml @ 1,000 mls/hr Q1H IV Last administered on 20:39; Start 07/18/17 at 19:58; Stop 07/18/17 at 20:57; Status DC Ondansetron HCl (Zofran) 4 mg 1X ONCE IV Last administered on 07/18/17 20:39 ; Start 07/18/17 at 20:00; Stop 07/18/17 at 20:04; Status DC Sodium Chloride 1,000 ml @ 1,000 mls/hr 1X ONCE IV Last administered on 07/18 21:40; Start 07/18/17 at 21:15; Stop 07/18/17 at 22:14; Status DC Iohexol (Omnipaque 300 Mg/ml) 75 ml 1X ONCE IV Last administered on 21:15; Start 07/18/17 at 21:15; Stop 07/18/17 at 21:16; Status DC Info (Do NOT chart on this entry -- for MONITORING) 1 each PRN DAILY PRN MC SEE COMMENTS; Start 07/18/17 at 21:15; Stop 07/20/17 at 21:14; Status DC Ondansetron HCl (Zofran) 4 mg PRN Q8HRS PRN IV NAUSEA/VOMITING; Start at 22:45; Stop 07/19/17 at 00:56; Status DC Promethazine HCl 12.5 mg/Dextrose 50.5 ml @ 151.5 mls/ hr PRN Q6HRS PRN IV NAUSEA/VOMITING Last administered on 07/20/17 13:56; Start 07/18/17 at 22:45 Famotidine (Pepcid) 20 mg BID IVP Last administered on 07/20/17 22:01; Start 07/19/17 at 09:00 Morphine Sulfate 4 mg PRN Q2HR PRN IV SEVERE PAIN Last administered on 03:53; Start 07/19/17 at 01:00 Ondansetron HCl (Zofran) 8 mg PRN Q8HRS PRN IV NAUSEA/VOMITING Last administered on 07/21/17 03:52; Start 07/19/17 at 01:00 Sodium Chloride 1,000 ml @ 100 mls/hr Q10H IV Last administered on 07/21/17 03:55; Start 07/19/17 at 01:00 Citalopram Hydrobromide (CeleXA) 40 mg DAILY PO Last administered on 09:31; Start 07/19/17 at 09:00 Acetaminophen (Tylenol) 500 mg QID PO ; Start 07/19/17 at 09:00; Stop at 09:00; Status DC Ibuprofen (Motrin) 400 mg PRN Q6HRS PRN PO INFLAMMATION; Start 07/19/17 at 09: 00 Naproxen (Naprosyn) 500 mg DAILY PO Last administered on 07/19/17 09:31; Start 07/19/17 at 09:00 Cetirizine HCl (ZyrTEC) 10 mg DAILY PO Last administered on 07/19/17 09:31; Start 07/19/17 at 09:00 Acetaminophen (Tylenol) 500 mg PRN QID PRN PO MILD PAIN; Start 07/19/17 at 09: 00 Erythromycin (E-Mycin) 500 mg TID PO ; Start 07/19/17 at 14:00; Status UNV Erythromycin Lactobionate 250 mg/Sodium Chloride 100 ml @ 100 mls/hr Q8HRS IV Last administered on 07/21/17 06:46; Start 07/19/17 at 14:00 Fentanyl Citrate (Fentanyl 2ml Vial) 50 mcg PRN Q2HR PRN IV SEVERE PAIN Last administered on 07/20/17 12:09; Start 07/20/17 at 00:15 Sincalide 1.2 mcg/ Sodium Chloride 30 ml @ 0 mls/hr 1X ONCE IV Last administered on 07/20/17 12:21; Start 07/20/17 at 12:30; Stop 07/20/17 at 12 :31; Status DC Active Scripts Active Reported Claritin (Loratadine) 10 Mg Tablet 10 Mg PO Lexapro (Escitalopram Oxalate) 20 Mg Tablet 20 Mg PO DAILY Nortrel (Norethindrone-Ethinyl Estrad) 1 Each Tablet 1 Each PO Tylenol (Acetaminophen) 325 Mg Tablet 1-2 Tab PO QID Naproxen 375 Mg Tablet 2 Tab PO DAILY Ibuprofen 400 Mg Tablet 1 Tab PO PRN Q6HRS Allergies Allergies: Coded Allergies: gabapentin (Verified Allergy, Severe, Nausea and Vomiting, 10/18/14) ROS General: YES: Appetite (loss), Other (subjective fevers), No: Chills PSYCHOLOGICAL ROS: YES: Anxiety, No: Depression Eyes: No Blurry vision, No Double vision HEENT: No: Heacaches, Sore Throat Hematological and Lymphatic: No: Bleeding Problems, Blood Clots Respiratory: No: Cough, Shortness of breath Cardiovascular: yes Chest Pain (due to abdominal pain), No Palpitations Gastrointestinal: Yes Other (see hpi) Genitourinary: No Dysuria, No Hematuria Musculoskeletal: No Joint Pain, No Muscle Pain Neurological: No Memory Loss, No Numbness/Tingling Skin: No Pruritus, No Rash Physical Exam General: Alert, Oriented X3, Cooperative, No acute distress HEENT: PERRLA, Mucous membr. moist/pink Lungs: Clear to auscultation, Normal air movement Heart: Regular rate, Normal S1, Normal S2, No murmurs Abdomen: Soft, Other (tender epigastric and RUQ ) Extremities: No clubbing, No cyanosis Skin: No rashes, No breakdown Neuro: Normal gait, Normal speech Psych/Mental Status: Mental status NL, Mood NL MUSCULOSKELETAL: No deformity, No swelling Vitals VITALS Vital Signs Date Time Temp Pulse Resp B/P (MAP) Pulse Ox O2 Delivery O2 Flow Rate FiO2 07/21/17 07:00 98.1 68 16 108/70 (83) 96 Room Air 98.1 Labs Labs Laboratory Tests Test 07/20/17 04:15 Thyroid Stimulating Hormone (TSH) 1.351 uIU/mL (0.358-3.74) Cortisol AM Sample 1.4 ug/dL (6.2-19.4) Assessment/Plan Assessment/Plan abdominal pain, n/v, weight loss High EF 96%, reproduction of symptoms low cortisol--repeat level pending will review with SONIA Frances MD 07/21/17 1209: CONSULT Allergies Allergies: Coded Allergies: gabapentin (Verified Allergy, Severe, Nausea and Vomiting, 10/18/14) Assessment/Plan Assessment/Plan Patient seen and examined by me. She currently is complaining of nausea sitting up in bed with a bucket has not had vomiting as of yet. HIDA scan showed ejection fraction 96% with recurrence of her symptoms and worsening of her symptoms at the time of Kinevac injection. Her abdomen is soft nondistended with normal active bowel sounds she is tender in the right upper quadrant and epigastrium. Agree with Dar assessment and plan we'll schedule laparoscopic cholecystectomy in aric MIRIAMLUZTEENA Vann APRN Jul 21, 2017 08:34 SONIA HASSAN MD Jul 21, 2017 12:09
[2017-07-21] MEDS: CETIRIZINE HCL 10 MG TABLET. PO SCH (08:53)
[2017-07-21] MEDS: FAMOTIDINE 20 MG/2 ML VIAL IVP SCH ×2 (08:53→20:54)
[2017-07-21] MEDS: CITALOPRAM 20 MG TABLET. PO SCH (08:54)
[2017-07-21] MEDS: NAPROXEN 500 MG TABLET PO SCH (08:54)
[2017-07-21 11:00] VITALS: BP 106/62
[2017-07-21] MEDS: HYDROmorphone 2 MG/ML VIAL IV PRN ×3 (12:27→21:33)
--- NOTE | 2017-07-21 12:39 | PDOC ---
PROGRESS NOTES Chief Complaint Chief Complaint 1. Abd pain, RT side mostly with unrevealing tests - (CT , HIDA neg, EGD neg a per pt0 2. PErsistent nausea, emesis with 30 lb weight loss plan: fu with gi ivf pain control, add dilaudid prn sx consulted, plan to do lap jai tmr, npo tonight gi ppx repeat Cortisol at 8am History of Present Illness History of Present Illness ROS: no fever, chills, sob or chest pain cont having nausea, some abd pain, but severe tenderness with only gentle touch HIDA neg CT neg EGD 6msa go neg as per pt low cortisol on 07/20 Vitals Vitals Vital Signs Date Time Temp Pulse Resp B/P (MAP) Pulse Ox O2 Delivery O2 Flow Rate FiO2 07/21/17 12:27 16 Room Air 07/21/17 11:00 98.2 86 106/62 (77) 99 98.2 Physical Exam General: Alert, Oriented X3, Cooperative, No acute distress Heart: Regular rate, Normal S1, Normal S2, No murmurs Lungs: Clear Abdomen: Normal bowel sounds, Soft, Other (tender epigastric and RUQ , severe, no guarding or rebound, no distendion) Extremities: No clubbing, No cyanosis Skin: No rashes, No breakdown Comment Review of Relevant I have reviewed the following items rut (where applicable) has been applied. Labs Laboratory Tests Test 07/20/17 04:15 Thyroid Stimulating Hormone (TSH) 1.351 uIU/mL (0.358-3.74) Cortisol AM Sample 1.4 ug/dL (6.2-19.4) Microbiology 07/18/17 Urine Culture - Final, Complete 07/18/17 Urine Culture Result 1 (FROY) - Final, Complete Medications Current Medications Fentanyl Citrate (Fentanyl 2ml Vial) 50 mcg PRN Q15MIN PRN IV PAIN GREATER THAN 3/10 Last administered on 07/18/17 20:41; Start 07/18/17 at 20:00; Stop 07/19/17 at 08:50; Status DC Sodium Chloride 1,000 ml @ 1,000 mls/hr Q1H IV Last administered on 20:39; Start 07/18/17 at 19:58; Stop 07/18/17 at 20:57; Status DC Ondansetron HCl (Zofran) 4 mg 1X ONCE IV Last administered on 07/18/17 20:39 ; Start 07/18/17 at 20:00; Stop 07/18/17 at 20:04; Status DC Sodium Chloride 1,000 ml @ 1,000 mls/hr 1X ONCE IV Last administered on 07/18 21:40; Start 07/18/17 at 21:15; Stop 07/18/17 at 22:14; Status DC Iohexol (Omnipaque 300 Mg/ml) 75 ml 1X ONCE IV Last administered on 21:15; Start 07/18/17 at 21:15; Stop 07/18/17 at 21:16; Status DC Info (Do NOT chart on this entry -- for MONITORING) 1 each PRN DAILY PRN MC SEE COMMENTS; Start 07/18/17 at 21:15; Stop 07/20/17 at 21:14; Status DC Ondansetron HCl (Zofran) 4 mg PRN Q8HRS PRN IV NAUSEA/VOMITING; Start at 22:45; Stop 07/19/17 at 00:56; Status DC Promethazine HCl 12.5 mg/Dextrose 50.5 ml @ 151.5 mls/ hr PRN Q6HRS PRN IV NAUSEA/VOMITING Last administered on 07/20/17 13:56; Start 07/18/17 at 22:45 Famotidine (Pepcid) 20 mg BID IVP Last administered on 07/21/17 08:53; Start 07/19/17 at 09:00 Morphine Sulfate 4 mg PRN Q2HR PRN IV SEVERE PAIN Last administered on 08:54; Start 07/19/17 at 01:00 Ondansetron HCl (Zofran) 8 mg PRN Q8HRS PRN IV NAUSEA/VOMITING Last administered on 07/21/17 12:26; Start 07/19/17 at 01:00 Sodium Chloride 1,000 ml @ 100 mls/hr Q10H IV Last administered on 07/21/17 03:55; Start 07/19/17 at 01:00 Citalopram Hydrobromide (CeleXA) 40 mg DAILY PO Last administered on 08:54; Start 07/19/17 at 09:00 Acetaminophen (Tylenol) 500 mg QID PO ; Start 07/19/17 at 09:00; Stop at 09:00; Status DC Ibuprofen (Motrin) 400 mg PRN Q6HRS PRN PO INFLAMMATION; Start 07/19/17 at 09: 00; Stop 07/21/17 at 10:12; Status DC Naproxen (Naprosyn) 500 mg DAILY PO Last administered on 07/21/17 08:54; Start 07/19/17 at 09:00; Stop 07/21/17 at 10:13; Status DC Cetirizine HCl (ZyrTEC) 10 mg DAILY PO Last administered on 07/21/17 08:53; Start 07/19/17 at 09:00 Acetaminophen (Tylenol) 500 mg PRN QID PRN PO MILD PAIN; Start 07/19/17 at 09: 00 Erythromycin (E-Mycin) 500 mg TID PO ; Start 07/19/17 at 14:00; Status UNV Erythromycin Lactobionate 250 mg/Sodium Chloride 100 ml @ 100 mls/hr Q8HRS IV Last administered on 07/21/17 06:46; Start 07/19/17 at 14:00 Fentanyl Citrate (Fentanyl 2ml Vial) 50 mcg PRN Q2HR PRN IV SEVERE PAIN Last administered on 07/20/17 12:09; Start 07/20/17 at 00:15 Sincalide 1.2 mcg/ Sodium Chloride 30 ml @ 0 mls/hr 1X ONCE IV Last administered on 07/20/17 12:21; Start 07/20/17 at 12:30; Stop 07/20/17 at 12 :31; Status DC Hydromorphone HCl (Dilaudid) 1 mg PRN Q4HRS PRN IV PAIN Last administered on 12:27; Start 07/21/17 at 10:15 Active Scripts Active Reported Claritin (Loratadine) 10 Mg Tablet 10 Mg PO Lexapro (Escitalopram Oxalate) 20 Mg Tablet 20 Mg PO DAILY Nortrel (Norethindrone-Ethinyl Estrad) 1 Each Tablet 1 Each PO Tylenol (Acetaminophen) 325 Mg Tablet 1-2 Tab PO QID Naproxen 375 Mg Tablet 2 Tab PO DAILY Ibuprofen 400 Mg Tablet 1 Tab PO PRN Q6HRS Vitals/I & O Vital Sign - Last 24 Hours 07/20/17 07/20/17 07/20/17 07/20/17 13:42 13:42 15:00 17:30 Temp 98.5 98.5 Pulse 65 Resp 16 B/P (MAP) 103/73 (83) Pulse Ox 96 O2 Delivery Room Air Room Air Room Air Room Air 07/20/17 07/20/17 07/20/17 07/20/17 19:25 19:50 19:55 23:13 Temp 98.3 98.3 Pulse 67 Resp 14 18 B/P (MAP) 121/75 (90) Pulse Ox 100 100 O2 Delivery Room Air Room Air Room Air Room Air 07/20/17 07/20/17 07/21/17 07/21/17 23:17 23:45 03:31 03:53 Temp 98.1 98.3 98.1 98.3 Pulse 72 75 Resp 16 16 16 16 B/P (MAP) 109/70 (83) 113/74 (87) Pulse Ox 96 98 96 O2 Delivery Room Air Room Air Room Air 07/21/17 07/21/17 07/21/17 07/21/17 04:30 07:00 08:54 11:00 Temp 98.1 98.2 98.1 98.2 Pulse 68 86 Resp 16 16 16 B/P (MAP) 108/70 (83) 106/62 (77) Pulse Ox 96 96 99 O2 Delivery Room Air Room Air Room Air Room Air 07/21/17 12:27 Resp 16 O2 Delivery Room Air HARRISON COLLADO MD Jul 21, 2017 12:39
--- NOTE | 2017-07-21 14:01 | PDOC ---
Subjective: Subjective: Feels the same - RUQ pain and nausea. Kept a Boost down. Objective: Objective: Reviewed other notes - plans for cholecystectomy tomorrow a.m. Vital Signs: Vital Signs Date Time Temp Pulse Resp B/P (MAP) Pulse Ox O2 Delivery O2 Flow Rate FiO2 07/21/17 12:27 16 Room Air 07/21/17 11:00 98.2 86 106/62 (77) 99 98.2 PE: GEN: NAD LUNGS: CTAB HEART: RRR ABD: RUQ pain NEURO/PSYCH: A & O 3, drowsy A/P: Epigastric/RUQ pain, n/v, weight loss -GES 02/2016: T1/2 131 min -EGD 12/2016: normal esophagus, erosive gastritis, normal duodenum -HIDA last week w/ "fatty meal": w/o cholecystitis, GB EF 64% -CT unrevealing this admission, repeat PIPIDA w/ GB EF 95% -TSH normal, Cortisol low (1.4); NAZANIN and repeat Cortisol pending -on IV erythromycin and Pepcid -- Plans for cholecystectomy tomorrow. Await Cortisol. HALLE CAMEJO Jul 21, 2017 14:01
[2017-07-21 15:00] VITALS: BP 100/64
[2017-07-21 19:35] VITALS: BP 113/73
[2017-07-21] MEDS: fentaNYL PF VIAL 100 MCG/2 ML VIAL IV PRN (19:36)
[2017-07-21 23:30] VITALS: BP 115/72
[2017-07-22] VITALS (13 sets, daily range): BP systolic 101–132; BP diastolic 67–89
[2017-07-22] MEDS: HYDROmorphone 2 MG/ML VIAL IV PRN ×3 (01:46→10:22)
[2017-07-22] MEDS ORDERED: BUPIVACAINE-EPI 0.25%-1:200000 MPF 30 ML VIAL. ONE (06:14)
[2017-07-22] MEDS ORDERED: IOHEXOL 300 MG/ML 50 ML VIAL. ONE (06:14)
[2017-07-22] MEDS ORDERED: SURGICEL HEMOSTAT 4X8 EACH. ONE (06:14)
[2017-07-22] MEDS: ERYTHROMYCIN LACT 250 MG in IV NORMAL SALINE 100ML 100 ML IV SCH ×3 (06:14→21:32)
[2017-07-22] MEDS ORDERED: LIDOCAINE 1% PF 2 ML VIAL. ID PRN (07:00)
[2017-07-22] MEDS ORDERED: PROCHLORPERAZINE 10 MG/2 ML VIAL. IV PRN (07:00)
[2017-07-22] MEDS ORDERED: HYDROmorphone 2 MG/ML VIAL IV PRN (07:00)
[2017-07-22] MEDS ORDERED: IV RINGERS,LACTATED 1000ML 1,000 ML IV SCH (07:00)
[2017-07-22] MEDS ORDERED: MORPHINE SULFATE 2 MG/ML DISP.SYRIN. IV PRN (07:00)
[2017-07-22] MEDS ORDERED: ROCURONIUM 50 MG/5 ML VIAL. ONE (07:19)
[2017-07-22] MEDS ORDERED: ONDANSETRON PF 4 MG/2 ML VIAL. ONE (07:19)
[2017-07-22] MEDS ORDERED: DEXAMETHASONE SOD PHOS 20 MG/5 ML VIAL. ONE (07:19)
[2017-07-22] MEDS ORDERED: fentaNYL PF VIAL 100 MCG/2 ML VIAL ONE ×2 (07:19→08:56)
[2017-07-22] MEDS ORDERED: MIDAZOLAM HCL/PF 2 MG/2 ML VIAL. ONE (07:19)
[2017-07-22] MEDS ORDERED: LIDOCAINE 2% PF Vial for OR 5 ML VIAL. ONE (07:19)
[2017-07-22] MEDS ORDERED: PROPOFOL 20 ML IV ONE (07:19)
[2017-07-22] MEDS ORDERED: SEVOFLURANE 31 TO 60 MINUTES. IH ONE (07:19)
[2017-07-22] MEDS ORDERED: SUCCINYLCHOLINE 200 MG/10 ML VIAL. ONE (07:34)
[2017-07-22] MEDS ORDERED: KETOROLAC 30 MG/ML INJ FOR OR. INJ ONE (08:09)
[2017-07-22] MEDS ORDERED: GLYCOPYRROLATE 1 MG/5 ML VIAL. ONE (08:09)
[2017-07-22] MEDS ORDERED: NEOSTIGMINE METHYLSULFATE 5 MG/5 ML SYRINGE. ONE (08:10)
--- NOTE | 2017-07-22 08:32 | PDOC4 ---
Operative Note Operative Note Date: 07/22/2017 Preoperative diagnosis: Biliary dyskinesia Postoperative diagnosis: Same Procedure: Lap scopic cholecystectomy Surgeon: Chano Specimen: Gallbladder Dictation: 22-year-old female with 9 week history of right upper quadrant abdominal pain nausea and vomiting significant weight loss 20 pounds over this 9 weeks. She is undergone ultrasound which was negative for gallbladder issues a HIDA scan showed ejection fraction 96% but recurrence of her symptoms with nausea vomiting pain with injection of Kinevac. The procedure of laparoscopic cholecystectomy was explained to the patient in detail was benefits were also discussed including bleeding infection injury to intra-abdominal contents possibly necessitating further or open operations also discussed that all of her symptoms may not be resolved with cholecystectomy. The patient seemed understanding gave both verbal and written consent had procedure performed. Patient was taken to the operating room placed in supine position general anesthesia was initiated once patient was asleep and intubated her abdomen was prepped and draped in the usual sterile fashion using ChloraPrep. An area just below the umbilicus was injected with quarter percent Marcaine with epinephrine incision made lead blade scalpel and a varies needle was placed within the abdomen and a pneumoperitoneum was achieved. At this point an 11 mm port was placed and a 5 mm camera was placed within the abdomen abdomen was inspected no other at maladies were noted. A 5 mm port was placed under direct visualization in the epigastrium and 2 more 5 mm ports were placed in the right upper quadrant under direct visualization. The dome of the gallbladder was grasped retracted cephalad the infundibulum the gallbladder was grasped retracted laterally exposing the triangle of Calot adherent tissues of the triangle are taken down exposing the cystic duct and cystic artery both were doubly clipped and transected the gallbladder was taken off the liver with hook electrocautery placed in Endo Catch bag and removed from the umbilicus. The right upper quadrant was irrigated and suctioned dry hemostasis deemed to be appropriate and the pneumoperitoneum was reduced all ports removed fascial defect at the umbilicus closed [id number] Vicryl suture and the skin was approximated all port sites 4 septic Monocryl Mastisol Steri-Strips and Band-Aids were applied as dressings. Patient was awakened and extubated in the operating room taken recovery in stable condition all sponge instrument and needle counts listed as correct estimate blood loss 10 mL SONIA HASSAN MD Jul 22, 2017 08:32
[2017-07-22] MEDS: fentaNYL PF VIAL 100 MCG/2 ML VIAL IV PRN (09:09)
[2017-07-22] MEDS ORDERED: fentaNYL PF VIAL 100 MCG/2 ML VIAL IV PRN ×2 (09:15)
--- NOTE | 2017-07-22 09:39 | PDOC ---
Objective: Objective: Out for surgery. Vital Signs: Vital Signs Date Time Temp Pulse Resp B/P (MAP) Pulse Ox O2 Delivery O2 Flow Rate FiO2 07/22/17 09:20 64 10 132/84 99 Simple Mask 10 07/22/17 08:48 98.6 98.6 PE: no exam A/P: Epigastric/RUQ pain, n/v, weight loss -GES 02/2016: T1/2 131 min -EGD 12/2016: normal esophagus, erosive gastritis, normal duodenum -HIDA last week w/ "fatty meal": w/o cholecystitis, GB EF 64% -CT unrevealing this admission, repeat PIPIDA w/ GB EF 95% -TSH normal, NAZANIN negative, Cortisol low/borderline (initial 1.4 - repeat 3.9) -on IV erythromycin and Pepcid -- Out for cholecystectomy, await operative findings/outcome. When improved/taking PO, transition to PO erythromycin (?stop) and acid-pedicurist. Consider endocrinology eval. SARA-HALLE GARIBAY Jul 22, 2017 09:39
[2017-07-22] MEDS: CETIRIZINE HCL 10 MG TABLET. PO SCH (10:21)
[2017-07-22] MEDS: IV NORMAL SALINE 1000ML BAG 1,000 ML IV SCH ×2 (10:21→20:59)
[2017-07-22] MEDS: CITALOPRAM 20 MG TABLET. PO SCH (10:21)
[2017-07-22] MEDS: FAMOTIDINE 20 MG/2 ML VIAL IVP SCH ×2 (10:22→20:58)
--- NOTE | 2017-07-22 11:41 | PDOC ---
PROGRESS NOTES Chief Complaint Chief Complaint 1. Abd pain, RT side mostly with unrevealing tests - (CT , HIDA neg, EGD neg a per pt) 2. PErsistent nausea, emesis with 30 lb weight loss plan: ivf pain control, add dilaudid prn sx consulted, lap jai 07/22 advance diet as per sx consider dc erythromycin? fu with GI gi ppx repeat Cortisol at 8am . not done since pt was out for sx since 7am, hope to repeat tmr am History of Present Illness History of Present Illness ROS: no fever, chills, sob or chest pain cont having nausea, some abd pain, but severe tenderness with only gentle touch HIDA neg CT neg EGD 6ms ago neg as per pt low cortisol on 07/20, 07/21 lap jai 07/22 Vitals Vitals Vital Signs Date Time Temp Pulse Resp B/P (MAP) Pulse Ox O2 Delivery O2 Flow Rate FiO2 07/22/17 11:26 Room Air 07/22/17 11:00 94 114/67 (83) 07/22/17 10:45 18 98 07/22/17 10:22 10.0 07/22/17 10:00 97.5 97.5 Physical Exam General: Alert, Oriented X3, Cooperative, No acute distress Heart: Regular rate, Normal S1, Normal S2, No murmurs Lungs: Clear Abdomen: Normal bowel sounds, Soft, Other (tender epigastric and RUQ , severe, no guarding or rebound, no distendion) Extremities: No clubbing, No cyanosis Skin: No rashes, No breakdown Comment Review of Relevant I have reviewed the following items rut (where applicable) has been applied. Labs Laboratory Tests Test 07/21/17 03:50 Cortisol AM Sample 3.9 ug/dL (6.2-19.4) Microbiology 07/18/17 Urine Culture - Final, Complete 07/18/17 Urine Culture Result 1 (FROY) - Final, Complete Medications Current Medications Fentanyl Citrate (Fentanyl 2ml Vial) 50 mcg PRN Q15MIN PRN IV PAIN GREATER THAN 3/10 Last administered on 07/18/17 20:41; Start 07/18/17 at 20:00; Stop 07/19/17 at 08:50; Status DC Sodium Chloride 1,000 ml @ 1,000 mls/hr Q1H IV Last administered on 20:39; Start 07/18/17 at 19:58; Stop 07/18/17 at 20:57; Status DC Ondansetron HCl (Zofran) 4 mg 1X ONCE IV Last administered on 07/18/17 20:39 ; Start 07/18/17 at 20:00; Stop 07/18/17 at 20:04; Status DC Sodium Chloride 1,000 ml @ 1,000 mls/hr 1X ONCE IV Last administered on 07/18 21:40; Start 07/18/17 at 21:15; Stop 07/18/17 at 22:14; Status DC Iohexol (Omnipaque 300 Mg/ml) 75 ml 1X ONCE IV Last administered on 21:15; Start 07/18/17 at 21:15; Stop 07/18/17 at 21:16; Status DC Info (Do NOT chart on this entry -- for MONITORING) 1 each PRN DAILY PRN MC SEE COMMENTS; Start 07/18/17 at 21:15; Stop 07/20/17 at 21:14; Status DC Ondansetron HCl (Zofran) 4 mg PRN Q8HRS PRN IV NAUSEA/VOMITING; Start at 22:45; Stop 07/19/17 at 00:56; Status DC Promethazine HCl 12.5 mg/Dextrose 50.5 ml @ 151.5 mls/ hr PRN Q6HRS PRN IV NAUSEA/VOMITING Last administered on 07/20/17 13:56; Start 07/18/17 at 22:45 Famotidine (Pepcid) 20 mg BID IVP Last administered on 07/22/17 10:22; Start 07/19/17 at 09:00 Morphine Sulfate 4 mg PRN Q2HR PRN IV SEVERE PAIN Last administered on 08:54; Start 07/19/17 at 01:00 Ondansetron HCl (Zofran) 8 mg PRN Q8HRS PRN IV NAUSEA/VOMITING Last administered on 07/21/17 12:26; Start 07/19/17 at 01:00 Sodium Chloride 1,000 ml @ 100 mls/hr Q10H IV Last administered on 07/22/17 10:21; Start 07/19/17 at 01:00 Citalopram Hydrobromide (CeleXA) 40 mg DAILY PO Last administered on 10:21; Start 07/19/17 at 09:00 Acetaminophen (Tylenol) 500 mg QID PO ; Start 07/19/17 at 09:00; Stop at 09:00; Status DC Ibuprofen (Motrin) 400 mg PRN Q6HRS PRN PO INFLAMMATION; Start 07/19/17 at 09: 00; Stop 07/21/17 at 10:12; Status DC Naproxen (Naprosyn) 500 mg DAILY PO Last administered on 07/21/17 08:54; Start 07/19/17 at 09:00; Stop 07/21/17 at 10:13; Status DC Cetirizine HCl (ZyrTEC) 10 mg DAILY PO Last administered on 07/22/17 10:21; Start 07/19/17 at 09:00 Acetaminophen (Tylenol) 500 mg PRN QID PRN PO MILD PAIN; Start 07/19/17 at 09: 00 Erythromycin (E-Mycin) 500 mg TID PO ; Start 07/19/17 at 14:00; Status UNV Erythromycin Lactobionate 250 mg/Sodium Chloride 100 ml @ 100 mls/hr Q8HRS IV Last administered on 07/22/17 06:14; Start 07/19/17 at 14:00 Fentanyl Citrate (Fentanyl 2ml Vial) 50 mcg PRN Q2HR PRN IV SEVERE PAIN Last administered on 07/22/17 09:09; Start 07/20/17 at 00:15 Sincalide 1.2 mcg/ Sodium Chloride 30 ml @ 0 mls/hr 1X ONCE IV Last administered on 07/20/17 12:21; Start 07/20/17 at 12:30; Stop 07/20/17 at 12 :31; Status DC Hydromorphone HCl (Dilaudid) 1 mg PRN Q4HRS PRN IV PAIN Last administered on 10:22; Start 07/21/17 at 10:15 Morphine Sulfate 1 mg PRN Q10MIN PRN IV SEVERE PAIN; Start 07/22/17 at 07:00; Stop 07/22/17 at 23:00 Ringer's Solution 1,000 ml @ 30 mls/hr Q24H IV ; Start 07/22/17 at 07:00; Stop 07/22/17 at 18:59 Lidocaine HCl (Xylocaine-Mpf 1% Vial) 2 ml PRN 1X PRN ID IV START; Start 07/22 at 07:00; Stop 07/22/17 at 23:00 Hydromorphone HCl (Dilaudid) 0.5 mg PRN Q10MIN PRN IV SEV PAIN, Second choice; Start 07/22/17 at 07:00; Stop 07/22/17 at 23:00 Prochlorperazine Edisylate (Compazine) 5 mg PACU PRN PRN IV NAUSEA, MRX1; Start 07/22/17 at 07:00; Stop 07/22/17 at 23:00 Iohexol (Omnipaque 300 Mg/ml) 50 ml STK-MED ONCE .ROUTE ; Start 07/22/17 at 06: 14; Stop 07/22/17 at 07:14; Status DC Cellulose 1 each STK-MED ONCE .ROUTE ; Start 07/22/17 at 06:14; Stop 07/22/17 at 07:14; Status DC Bupivacaine HCl/ Epinephrine Bitart (Sensorcaine-Epi 0.25%-1:153561 Mpf) 30 ml STK-MED ONCE .ROUTE Last administered on 07/22/17t 07:57; Start 07/22/17 at 06:14; Stop 07/22/17 at 07:14; Status DC Dexamethasone Sodium Phosphate (Decadron) 20 mg STK-MED ONCE .ROUTE ; Start at 07:19; Stop 07/22/17 at 07:20; Status DC Ondansetron HCl (Zofran) 4 mg STK-MED ONCE .ROUTE ; Start 07/22/17 at 07:19; Stop 07/22/17 at 07:20; Status DC Propofol 20 ml @ As Directed STK-MED ONCE IV ; Start 07/22/17 at 07:19; Stop 07/22/17 at 07:20; Status DC Lidocaine HCl (Lidocaine Pf 2% Vial) 5 ml STK-MED ONCE .ROUTE ; Start 07/22/17 at 07:19; Stop 07/22/17 at 07:20; Status DC Midazolam HCl (Versed) 2 mg STK-MED ONCE .ROUTE ; Start 07/22/17 at 07:19; Stop 07/22/17 at 07:20; Status DC Fentanyl Citrate (Fentanyl 2ml Vial) 100 mcg STK-MED ONCE .ROUTE ; Start at 07:19; Stop 07/22/17 at 07:20; Status DC Rocuronium [place] (Zemuron) 50 mg STK-MED ONCE .ROUTE ; Start 07/22/17 at 07: 19; Stop 07/22/17 at 07:20; Status DC Sevoflurane (Ultane) 30 ml STK-MED ONCE IH ; Start 07/22/17 at 07:19; Stop at 07:20; Status DC Succinylcholine Chloride (Anectine) 200 mg STK-MED ONCE .ROUTE ; Start at 07:34; Stop 07/22/17 at 07:35; Status DC Ketorolac Tromethamine (Toradol For Or Only) 30 mg STK-MED ONCE INJ ; Start at 08:09; Stop 07/22/17 at 08:10; Status DC Glycopyrrolate (Robinul) 1 mg STK-MED ONCE .ROUTE ; Start 07/22/17 at 08:09; Stop 07/22/17 at 08:10; Status DC Neostigmine Methylsulfate 5 mg STK-MED ONCE .ROUTE ; Start 07/22/17 at 08:10; Stop 07/22/17 at 08:11; Status DC Fentanyl Citrate (Fentanyl 2ml Vial) 100 mcg STK-MED ONCE .ROUTE ; Start at 08:56; Stop 07/22/17 at 08:57; Status DC Fentanyl Citrate (Fentanyl 2ml Vial) 25 mcg PRN Q5MIN PRN IV Acute Pain; Start 07/22/17 at 09:15; Stop 07/23/17 at 09:14 Fentanyl Citrate (Fentanyl 2ml Vial) 50 mcg PRN Q5MIN PRN IV Acute Pain Last administered on 07/22/17t 09:15; Start 07/22/17 at 09:15; Stop 07/23/17 at 09 :14 Acetaminophen/ Hydrocodone Bitart (Lortab 5/325) 1 tab Q6HRS PRN PO PAIN; Start 07/22/17 at 10:15 Active Scripts Active Reported Claritin (Loratadine) 10 Mg Tablet 10 Mg PO Lexapro (Escitalopram Oxalate) 20 Mg Tablet 20 Mg PO DAILY Nortrel (Norethindrone-Ethinyl Estrad) 1 Each Tablet 1 Each PO Tylenol (Acetaminophen) 325 Mg Tablet 1-2 Tab PO QID Naproxen 375 Mg Tablet 2 Tab PO DAILY Ibuprofen 400 Mg Tablet 1 Tab PO PRN Q6HRS Vitals/I & O Vital Sign - Last 24 Hours 07/21/17 07/21/17 07/21/17 07/21/17 12:27 15:00 15:20 17:07 Temp 97.9 97.9 Pulse 77 Resp 16 16 16 16 B/P (MAP) 100/64 (76) Pulse Ox 95 O2 Delivery Room Air Room Air Room Air Room Air 07/21/17 07/21/17 07/21/17 07/21/17 17:37 19:35 19:36 21:33 Temp 97.8 97.8 Pulse 70 Resp 16 18 18 18 B/P (MAP) 113/73 (86) Pulse Ox 96 O2 Delivery Room Air Room Air Room Air 07/21/17 07/22/17 07/22/17 07/22/17 23:30 01:46 03:26 05:45 Temp 98.0 98.1 98.0 98.1 Pulse 68 70 Resp 18 18 18 18 B/P (MAP) 115/72 (86) 116/72 (87) Pulse Ox 96 97 O2 Delivery Room Air Room Air Room Air Room Air 07/22/17 07/22/17 07/22/17 07/22/17 07:23 08:48 09:05 09:09 Temp 97.8 98.6 97.8 98.6 Pulse 71 96 110 Resp 15 20 20 20 B/P (MAP) 134/95 144/97 153/94 Pulse Ox 96 100 100 100 O2 Delivery Room Air Simple Mask Simple Mask Simple Mask O2 Flow Rate 10 10 10.0 07/22/17 07/22/17 07/22/17 07/22/17 09:15 09:20 09:35 10:00 Temp 97.5 97.5 Pulse 64 65 68 Resp 20 10 10 18 B/P (MAP) 132/84 126/82 132/87 (102) Pulse Ox 99 99 95 98 O2 Delivery Simple Mask Simple Mask Room Air Room Air O2 Flow Rate 10.0 10 07/22/17 07/22/17 07/22/17 07/22/17 10:15 10:20 10:20 10:22 Pulse 72 Resp 18 B/P (MAP) 130/87 (101) Pulse Ox 98 95 95 95 O2 Delivery Room Air Room Air Room Air Room Air O2 Flow Rate 10.0 10.0 10.0 07/22/17 07/22/17 07/22/17 07/22/17 10:30 10:45 11:00 11:26 Pulse 83 84 94 Resp 18 18 B/P (MAP) 132/89 (103) 130/83 (99) 114/67 (83) Pulse Ox 98 98 O2 Delivery Room Air Room Air Room Air Intake and Output 07/22/17 07/22/17 07/23/17 15:00 23:00 07:00 Intake Total 950 ml Output Total 10 ml Balance 940 ml HARRISON COLLADO MD Jul 22, 2017 11:41
[2017-07-22] MEDS: HYDROcodone/APAP 5/325MG 1 TAB TABLET PO PRN ×2 (14:54→21:06)
[2017-07-22] MEDS: MORPHINE SULFATE 4 MG/ML DISP.SYRIN. IV PRN (19:25)
[2017-07-23 03:00] VITALS: BP 118/74
[2017-07-23 04:33] LABS: BASO % 0 % (0-3); EOS % 0 % (0-3); HEMATOCRIT 37.5 % (36.0-47.0); HEMOGLOBIN 12.9 g/dL (12.0-15.5); LYMPH # 1.1 x10^3/uL (1.0-4.8); LYMPH % 10 % (24-48); MEAN CORPUSCULAR HEMOGLOBIN 29 pg (25-35); MEAN CORPUSCULAR HGB CONC 34 g/dL (31-37); MEAN CORPUSCULAR VOLUME 85 fL (79-100); MONO % 4 % (0-9); NEUT % 85 % (31-73); PLATELET COUNT 223 x10^3/uL (140-400); RED CELL DISTRIBUTION WIDTH 12.4 % (11.5-14.5)
[2017-07-23 05:10] LABS: CALCIUM 9.2 mg/dL (8.5-10.1); CREATININE 0.7 mg/dL (0.6-1.0); GFR 106.7; POTASSIUM 3.8 mmol/L (3.5-5.1)
[2017-07-23] MEDS: ERYTHROMYCIN LACT 250 MG in IV NORMAL SALINE 100ML 100 ML IV SCH ×2 (06:04→14:00)
[2017-07-23 07:00] VITALS: BP 120/75
[2017-07-23] MEDS: HYDROcodone/APAP 5/325MG 1 TAB TABLET PO PRN ×2 (07:37→14:34)
[2017-07-23] MEDS: FAMOTIDINE 20 MG/2 ML VIAL IVP SCH (07:38)
[2017-07-23 09:09] LABS: PLT ESTIMATE ADEQUATE (ADEQUATE)
[2017-07-23] MEDS: CETIRIZINE HCL 10 MG TABLET. PO SCH (10:47)
[2017-07-23] MEDS: CITALOPRAM 20 MG TABLET. PO SCH (10:47)
--- NOTE | 2017-07-23 13:02 | PDOC ---
GI PROGRESS NOTES Date Date/Time DATE: 07/23/17 TIME: 13:01 Subjective Subjective nausea improved after lap jai yesterday- reports tolerating diet Objective Vitals Vital Signs Date Time Temp Pulse Resp B/P (MAP) Pulse Ox O2 Delivery O2 Flow Rate FiO2 07/23/17 07:37 16 96 Room Air 07/23/17 07:00 97.9 64 20 120/75 (90) 96 Room Air 97.9 07/23/17 03:00 98.4 81 16 118/74 (89) 96 Room Air 98.4 07/22/17 23:00 98.1 65 16 125/89 (101) 95 Room Air 98.1 07/22/17 21:06 18 Room Air 07/22/17 19:25 18 Room Air 07/22/17 19:00 97.9 67 16 111/77 (88) 97 Room Air 97.9 07/22/17 17:11 98 Room Air 10.0 07/22/17 14:54 98 Room Air 07/22/17 14:53 97.9 70 101/69 (80) 97 Room Air 97.9 07/22/17 14:00 79 118/67 (84) Labs Labs Laboratory Tests Test 07/23/17 04:05 White Blood Count 11.0 x10^3/uL (4.0-11.0) Red Blood Count 4.40 x10^6/uL (3.50-5.40) Hemoglobin 12.9 g/dL (12.0-15.5) Hematocrit 37.5 % (36.0-47.0) Mean Corpuscular Volume 85 fL (79-100) Mean Corpuscular Hemoglobin 29 pg (25-35) Mean Corpuscular Hemoglobin Concent 34 g/dL (31-37) Red Cell Distribution Width 12.4 % (11.5-14.5) Platelet Count 223 x10^3/uL (140-400) Neutrophils (%) (Auto) 85 % (31-73) Lymphocytes (%) (Auto) 10 % (24-48) Monocytes (%) (Auto) 4 % (0-9) Eosinophils (%) (Auto) 0 % (0-3) Basophils (%) (Auto) 0 % (0-3) Neutrophils # (Auto) 9.4 x10^3uL (1.8-7.7) Lymphocytes # (Auto) 1.1 x10^3/uL (1.0-4.8) Monocytes # (Auto) 0.5 x10^3/uL (0.0-1.1) Eosinophils # (Auto) 0.0 x10^3/uL (0.0-0.7) Basophils # (Auto) 0.0 x10^3/uL (0.0-0.2) Segmented Neutrophils % 85 % (35-66) Band Neutrophils % 2 % (0-9) Lymphocytes % 8 % (24-48) Monocytes % 5 % (0-10) Platelet Estimate Adequate (ADEQUATE) Sodium Level 141 mmol/L (136-145) Potassium Level 3.8 mmol/L (3.5-5.1) Chloride Level 106 mmol/L (98-107) Carbon Dioxide Level 25 mmol/L (21-32) Anion Gap 10 (6-14) Blood Urea Nitrogen 6 mg/dL (7-20) Creatinine 0.7 mg/dL (0.6-1.0) Estimated GFR (Cockcroft-Gault) 106.7 Glucose Level 125 mg/dL (70-99) Calcium Level 9.2 mg/dL (8.5-10.1) Physical Exam Physical Exam abd- soft not tender Assessment Assessment Chronic n/v- improved after lap jai Plan- since tolerated diet and improved, OK to d/c from GI point of view- OV in 3-4 weeks Problems: DHAVAL MOHAN MD Jul 23, 2017 13:02
--- NOTE | 2017-07-23 14:23 | PDOC ---
PROGRESS NOTES Subjective Subjective pt looks well, nausea improved, able to eat Objective Objective Vital Signs Date Time Temp Pulse Resp B/P (MAP) Pulse Ox O2 Delivery O2 Flow Rate FiO2 07/23/17 07:37 16 96 Room Air 07/23/17 07:00 97.9 64 120/75 (90) 97.9 07/22/17 17:11 10.0 Intake and Output 07/24/17 07:00 Intake Total 600 ml Output Total 600 ml Balance 0 ml Intake Oral 600 ml Output Urine Total 600 ml Physical Exam Abdomen: Soft General: Alert, Oriented X3, Cooperative Plan Plan of Care OK to discharge Comment Review of Relevant I have reviewed the following items rut (where applicable) has been applied. Labs Laboratory Tests Test 07/22/17 10:10 07/23/17 04:05 Cortisol AM Sample 3.9 ug/dL (6.2-19.4) White Blood Count 11.0 x10^3/uL (4.0-11.0) Red Blood Count 4.40 x10^6/uL (3.50-5.40) Hemoglobin 12.9 g/dL (12.0-15.5) Hematocrit 37.5 % (36.0-47.0) Mean Corpuscular Volume 85 fL (79-100) Mean Corpuscular Hemoglobin 29 pg (25-35) Mean Corpuscular Hemoglobin Concent 34 g/dL (31-37) Red Cell Distribution Width 12.4 % (11.5-14.5) Platelet Count 223 x10^3/uL (140-400) Neutrophils (%) (Auto) 85 % (31-73) Lymphocytes (%) (Auto) 10 % (24-48) Monocytes (%) (Auto) 4 % (0-9) Eosinophils (%) (Auto) 0 % (0-3) Basophils (%) (Auto) 0 % (0-3) Neutrophils # (Auto) 9.4 x10^3uL (1.8-7.7) Lymphocytes # (Auto) 1.1 x10^3/uL (1.0-4.8) Monocytes # (Auto) 0.5 x10^3/uL (0.0-1.1) Eosinophils # (Auto) 0.0 x10^3/uL (0.0-0.7) Basophils # (Auto) 0.0 x10^3/uL (0.0-0.2) Segmented Neutrophils % 85 % (35-66) Band Neutrophils % 2 % (0-9) Lymphocytes % 8 % (24-48) Monocytes % 5 % (0-10) Platelet Estimate Adequate (ADEQUATE) Sodium Level 141 mmol/L (136-145) Potassium Level 3.8 mmol/L (3.5-5.1) Chloride Level 106 mmol/L (98-107) Carbon Dioxide Level 25 mmol/L (21-32) Anion Gap 10 (6-14) Blood Urea Nitrogen 6 mg/dL (7-20) Creatinine 0.7 mg/dL (0.6-1.0) Estimated GFR (Cockcroft-Gault) 106.7 Glucose Level 125 mg/dL (70-99) Calcium Level 9.2 mg/dL (8.5-10.1) Laboratory Tests Test 07/23/17 04:05 White Blood Count 11.0 x10^3/uL (4.0-11.0) Red Blood Count 4.40 x10^6/uL (3.50-5.40) Hemoglobin 12.9 g/dL (12.0-15.5) Hematocrit 37.5 % (36.0-47.0) Mean Corpuscular Volume 85 fL (79-100) Mean Corpuscular Hemoglobin 29 pg (25-35) Mean Corpuscular Hemoglobin Concent 34 g/dL (31-37) Red Cell Distribution Width 12.4 % (11.5-14.5) Platelet Count 223 x10^3/uL (140-400) Neutrophils (%) (Auto) 85 % (31-73) Lymphocytes (%) (Auto) 10 % (24-48) Monocytes (%) (Auto) 4 % (0-9) Eosinophils (%) (Auto) 0 % (0-3) Basophils (%) (Auto) 0 % (0-3) Neutrophils # (Auto) 9.4 x10^3uL (1.8-7.7) Lymphocytes # (Auto) 1.1 x10^3/uL (1.0-4.8) Monocytes # (Auto) 0.5 x10^3/uL (0.0-1.1) Eosinophils # (Auto) 0.0 x10^3/uL (0.0-0.7) Basophils # (Auto) 0.0 x10^3/uL (0.0-0.2) Segmented Neutrophils % 85 % (35-66) Band Neutrophils % 2 % (0-9) Lymphocytes % 8 % (24-48) Monocytes % 5 % (0-10) Platelet Estimate Adequate (ADEQUATE) Sodium Level 141 mmol/L (136-145) Potassium Level 3.8 mmol/L (3.5-5.1) Chloride Level 106 mmol/L (98-107) Carbon Dioxide Level 25 mmol/L (21-32) Anion Gap 10 (6-14) Blood Urea Nitrogen 6 mg/dL (7-20) Creatinine 0.7 mg/dL (0.6-1.0) Estimated GFR (Cockcroft-Gault) 106.7 Glucose Level 125 mg/dL (70-99) Calcium Level 9.2 mg/dL (8.5-10.1) Microbiology 07/18/17 Urine Culture - Final, Complete 07/18/17 Urine Culture Result 1 (FROY) - Final, Complete Medications Current Medications Fentanyl Citrate (Fentanyl 2ml Vial) 50 mcg PRN Q15MIN PRN IV PAIN GREATER THAN 3/10 Last administered on 07/18/17 20:41; Start 07/18/17 at 20:00; Stop 07/19/17 at 08:50; Status DC Sodium Chloride 1,000 ml @ 1,000 mls/hr Q1H IV Last administered on 20:39; Start 07/18/17 at 19:58; Stop 07/18/17 at 20:57; Status DC Ondansetron HCl (Zofran) 4 mg 1X ONCE IV Last administered on 07/18/17 20:39 ; Start 07/18/17 at 20:00; Stop 07/18/17 at 20:04; Status DC Sodium Chloride 1,000 ml @ 1,000 mls/hr 1X ONCE IV Last administered on 07/18 21:40; Start 07/18/17 at 21:15; Stop 07/18/17 at 22:14; Status DC Iohexol (Omnipaque 300 Mg/ml) 75 ml 1X ONCE IV Last administered on 21:15; Start 07/18/17 at 21:15; Stop 07/18/17 at 21:16; Status DC Info (Do NOT chart on this entry -- for MONITORING) 1 each PRN DAILY PRN MC SEE COMMENTS; Start 07/18/17 at 21:15; Stop 07/20/17 at 21:14; Status DC Ondansetron HCl (Zofran) 4 mg PRN Q8HRS PRN IV NAUSEA/VOMITING; Start at 22:45; Stop 07/19/17 at 00:56; Status DC Promethazine HCl 12.5 mg/Dextrose 50.5 ml @ 151.5 mls/ hr PRN Q6HRS PRN IV NAUSEA/VOMITING Last administered on 07/20/17 13:56; Start 07/18/17 at 22:45 Famotidine (Pepcid) 20 mg BID IVP Last administered on 07/23/17 07:38; Start 07/19/17 at 09:00 Morphine Sulfate 4 mg PRN Q2HR PRN IV SEVERE PAIN Last administered on 19:25; Start 07/19/17 at 01:00 Ondansetron HCl (Zofran) 8 mg PRN Q8HRS PRN IV NAUSEA/VOMITING Last administered on 07/21/17 12:26; Start 07/19/17 at 01:00 Sodium Chloride 1,000 ml @ 100 mls/hr Q10H IV Last administered on 07/22/17 20:59; Start 07/19/17 at 01:00 Citalopram Hydrobromide (CeleXA) 40 mg DAILY PO Last administered on 10:47; Start 07/19/17 at 09:00 Acetaminophen (Tylenol) 500 mg QID PO ; Start 07/19/17 at 09:00; Stop at 09:00; Status DC Ibuprofen (Motrin) 400 mg PRN Q6HRS PRN PO INFLAMMATION; Start 07/19/17 at 09: 00; Stop 07/21/17 at 10:12; Status DC Naproxen (Naprosyn) 500 mg DAILY PO Last administered on 07/21/17 08:54; Start 07/19/17 at 09:00; Stop 07/21/17 at 10:13; Status DC Cetirizine HCl (ZyrTEC) 10 mg DAILY PO Last administered on 07/23/17 10:47; Start 07/19/17 at 09:00 Acetaminophen (Tylenol) 500 mg PRN QID PRN PO MILD PAIN; Start 07/19/17 at 09: 00 Erythromycin (E-Mycin) 500 mg TID PO ; Start 07/19/17 at 14:00; Status UNV Erythromycin Lactobionate 250 mg/Sodium Chloride 100 ml @ 100 mls/hr Q8HRS IV Last administered on 07/23/17 06:04; Start 07/19/17 at 14:00 Fentanyl Citrate (Fentanyl 2ml Vial) 50 mcg PRN Q2HR PRN IV SEVERE PAIN Last administered on 07/22/17 09:09; Start 07/20/17 at 00:15 Sincalide 1.2 mcg/ Sodium Chloride 30 ml @ 0 mls/hr 1X ONCE IV Last administered on 07/20/17 12:21; Start 07/20/17 at 12:30; Stop 07/20/17 at 12 :31; Status DC Hydromorphone HCl (Dilaudid) 1 mg PRN Q4HRS PRN IV PAIN Last administered on 10:22; Start 07/21/17 at 10:15 Morphine Sulfate 1 mg PRN Q10MIN PRN IV SEVERE PAIN; Start 07/22/17 at 07:00; Stop 07/22/17 at 13:00; Status DC Ringer's Solution 1,000 ml @ 30 mls/hr Q24H IV ; Start 07/22/17 at 07:00; Stop 07/22/17 at 18:59; Status DC Lidocaine HCl (Xylocaine-Mpf 1% Vial) 2 ml PRN 1X PRN ID IV START; Start 07/22 at 07:00; Stop 07/22/17 at 13:07; Status DC Hydromorphone HCl (Dilaudid) 0.5 mg PRN Q10MIN PRN IV SEV PAIN, Second choice; Start 07/22/17 at 07:00; Stop 07/22/17 at 13:00; Status DC Prochlorperazine Edisylate (Compazine) 5 mg PACU PRN PRN IV NAUSEA, MRX1; Start 07/22/17 at 07:00; Stop 07/22/17 at 13:01; Status DC Iohexol (Omnipaque 300 Mg/ml) 50 ml STK-MED ONCE .ROUTE ; Start 07/22/17 at 06: 14; Stop 07/22/17 at 07:14; Status DC Cellulose 1 each STK-MED ONCE .ROUTE ; Start 07/22/17 at 06:14; Stop 07/22/17 at 07:14; Status DC Bupivacaine HCl/ Epinephrine Bitart (Sensorcaine-Epi 0.25%-1:526754 Mpf) 30 ml STK-MED ONCE .ROUTE Last administered on 07/22/17t 07:57; Start 07/22/17 at 06:14; Stop 07/22/17 at 07:14; Status DC Dexamethasone Sodium Phosphate (Decadron) 20 mg STK-MED ONCE .ROUTE ; Start at 07:19; Stop 07/22/17 at 07:20; Status DC Ondansetron HCl (Zofran) 4 mg STK-MED ONCE .ROUTE ; Start 07/22/17 at 07:19; Stop 07/22/17 at 07:20; Status DC Propofol 20 ml @ As Directed STK-MED ONCE IV ; Start 07/22/17 at 07:19; Stop 07/22/17 at 07:20; Status DC Lidocaine HCl (Lidocaine Pf 2% Vial) 5 ml STK-MED ONCE .ROUTE ; Start 07/22/17 at 07:19; Stop 07/22/17 at 07:20; Status DC Midazolam HCl (Versed) 2 mg STK-MED ONCE .ROUTE ; Start 07/22/17 at 07:19; Stop 07/22/17 at 07:20; Status DC Fentanyl Citrate (Fentanyl 2ml Vial) 100 mcg STK-MED ONCE .ROUTE ; Start at 07:19; Stop 07/22/17 at 07:20; Status DC Rocuronium [place] (Zemuron) 50 mg STK-MED ONCE .ROUTE ; Start 07/22/17 at 07: 19; Stop 07/22/17 at 07:20; Status DC Sevoflurane (Ultane) 30 ml STK-MED ONCE IH ; Start 07/22/17 at 07:19; Stop at 07:20; Status DC Succinylcholine Chloride (Anectine) 200 mg STK-MED ONCE .ROUTE ; Start at 07:34; Stop 07/22/17 at 07:35; Status DC Ketorolac Tromethamine (Toradol For Or Only) 30 mg STK-MED ONCE INJ ; Start at 08:09; Stop 07/22/17 at 08:10; Status DC Glycopyrrolate (Robinul) 1 mg STK-MED ONCE .ROUTE ; Start 07/22/17 at 08:09; Stop 07/22/17 at 08:10; Status DC Neostigmine Methylsulfate 5 mg STK-MED ONCE .ROUTE ; Start 07/22/17 at 08:10; Stop 07/22/17 at 08:11; Status DC Fentanyl Citrate (Fentanyl 2ml Vial) 100 mcg STK-MED ONCE .ROUTE ; Start at 08:56; Stop 07/22/17 at 08:57; Status DC Fentanyl Citrate (Fentanyl 2ml Vial) 25 mcg PRN Q5MIN PRN IV Acute Pain; Start 07/22/17 at 09:15; Stop 07/22/17 at 13:00; Status DC Fentanyl Citrate (Fentanyl 2ml Vial) 50 mcg PRN Q5MIN PRN IV Acute Pain Last administered on 07/22/17t 09:15; Start 07/22/17 at 09:15; Stop 07/22/17 at 13 :00; Status DC Acetaminophen/ Hydrocodone Bitart (Lortab 5/325) 1 tab Q6HRS PRN PO PAIN Last administered on 07/23/17 07:37; Start 07/22/17 at 10:15 Active Scripts Active Reported Claritin (Loratadine) 10 Mg Tablet 10 Mg PO Lexapro (Escitalopram Oxalate) 20 Mg Tablet 20 Mg PO DAILY Nortrel (Norethindrone-Ethinyl Estrad) 1 Each Tablet 1 Each PO Tylenol (Acetaminophen) 325 Mg Tablet 1-2 Tab PO QID Naproxen 375 Mg Tablet 2 Tab PO DAILY Ibuprofen 400 Mg Tablet 1 Tab PO PRN Q6HRS Vitals/I & O Vital Sign - Last 24 Hours 07/22/17 07/22/17 07/22/17 07/22/17 14:53 14:54 17:11 19:00 Temp 97.9 97.9 97.9 97.9 Pulse 70 67 Resp 16 B/P (MAP) 101/69 (80) 111/77 (88) Pulse Ox 97 98 98 97 O2 Delivery Room Air Room Air Room Air Room Air O2 Flow Rate 10.0 07/22/17 07/22/17 07/22/17 07/23/17 19:25 21:06 23:00 03:00 Temp 98.1 98.4 98.1 98.4 Pulse 65 81 Resp 18 18 16 16 B/P (MAP) 125/89 (101) 118/74 (89) Pulse Ox 95 96 O2 Delivery Room Air Room Air Room Air Room Air 07/23/17 07/23/17 07:00 07:37 Temp 97.9 97.9 Pulse 64 Resp 20 16 B/P (MAP) 120/75 (90) Pulse Ox 96 96 O2 Delivery Room Air Room Air Intake and Output 07/23/17 07/23/17 07/24/17 15:00 23:00 07:00 Intake Total 600 ml Output Total 600 ml Balance 0 ml PASTORA CHANG MD Jul 23, 2017 14:22
[2017-07-23 14:47] VITALS: BP 119/77
[2017-07-23] MEDS ORDERED: OXYC-323 PO (15:01)
--- NOTE | 2017-07-25 10:56 | PATHOLOGY ---
PATHOLOGY REPORT * * * * * * * * FINAL DIAGNOSIS: Gallbladder, laparoscopic cholecystectomy: - Cholesterolosis, focal. - Chronic cholecystitis. (JPM:pit; 07/25/2017) COMMENT: There are no calculi identified within the gallbladder lumen or specimen container. Sections of the gallbladder show focal cholesterolosis and mild chronic inflammation. There is no evidence of malignancy. (JPM:pit; 07/25/2017) REPORT ELECTRONICALLY SIGNED BY: Damien Ford M.D. DATE/TIME: 07/25/2017 10:55 * * * * * * * * GROSS PATHOLOGY: Received in formalin labeled "Jomar García, gallbladder and its contents," is an 8.1 x 3.2 x 2.5 cm, intact gallbladder with dark blue to greenish, highly vascular serosal surfaces. Opening the gallbladder reveals dark simmons, velvety mucosa and an average wall thickness of 0.2 cm. Calculi are not present and no masses are noted grossly. [employer] Social Worker sections from the body and fundus are submitted along with the proximal margin in cassette A1. (TSD; 07/22/2017) INITIAL CPT CODE(S): A; 60904 Professional services performed [place] [address] Technical services performed by [facility] at [address] [place] [address], [facility] [address] [address]. SPECIMEN(S) RECEIVED: A.Gallbladder and its contents CLINICAL HISTORY: Intractable nausea, vomiting with abdominal pain PATIENT: JOMAR GARCÍA /AGE: 9 1995 (Age: 22) PATIENT #: [id number] ALT CASE #: SPECIMEN COLLECTION DATE: 07/22/2017 SPECIMEN RECEIVED DATE: 07/22/2017 [facility] - [id number] [place] [address] - PHONE: [phone] * * * END OF REPORT * * *
== END 2017-07-23 15:33 | disposition home or self-care (01) | DRG 416 ==
LOC: ER 19:45 → 4 NORTH 22:30
PROVIDERS: ADMIT Internal Medicine; ATTEND Internal Medicine
PROC: 0FT40ZZ Resection of Gallbladder, Open Approach (ICD-10-PCS; principal; 2017-07-22 07:30)
DX: K82.8 Other specified diseases of gallbladder (principal); K31.84 Gastroparesis; F41.9 Anxiety disorder, unspecified; K58.0 Irritable bowel syndrome with diarrhea; Z88.8 Allergy status to other drugs, medicaments and biological substances
CPT/HCPCS: 36415; 74177; 78226; 80048; 80076; 81001; 81025; 82533; 83690; 84443; 85007; 85025; 87086; 96361; 96374; 96375; A9537; J0330; J1100; J1170; J1364; J1885; J2250; J2270; J2405; J2550; J2704; J2710; J2805; J3010; J3490; J7030; Q9967; S0028; 99285-25; J2001